=== PATIENT | male | born 1955 | race African-American/Black ===

== ENCOUNTER 2019-10-23 22:11 | Emergency (ER) | payer OTHER ==
[2019-10-24] MEDS ORDERED: NA CHLORIDE 0.9% 1,000 ML ONE (00:52)
[2019-10-24 01:29] LABS: Absolute Lymphocytes (CBC) 0.9 K/uL (0.7-4.9); Basophils % 0.7 % (0-1.3); Hematocrit 42.6 % (39.6-49.0); Lymphocytes % 20.9 % (15.3-44.8); MPV 10.1 fL (7.6-11.3)
[2019-10-24 01:47] LABS: Protime INR 1.09
[2019-10-24 01:50] LABS: ALT/SGPT 69 U/L (12-78); AST/SGOT 51 U/L (15-37); Albumin 3.6 g/dL (3.4-5.0); Alkaline Phosphatase 106 U/L (45-117); BUN Blood Urea Nitrogen 13 mg/dL (7-18); Bicarbonate 27 mmol/L (21-32); Bilirubin Direct < 0.1 mg/dL (0-0.2); Bilirubin Total 0.3 mg/dL (0.2-1.0); Glucose Level 142 mg/dL (74-106); Lipase 185 U/L (73-393); Potassium 3.8 mmol/L (3.5-5.1); Protein, Total 8.2 g/dL (6.4-8.2); Sodium Level 137 mmol/L (136-145)
[2019-10-24 02:09] LABS: Urine Blood NEGATIVE (NEG); Urine Glucose NEGATIVE (NEG); Urine Protein 1+ (NEG); Urine Specific Gravity >1.030 (1.005-1.030); Urine pH 5.5 (5.0-7.0)
[2019-10-24 02:15] LABS: Urine Bacteria 20-50 /HPF (NONE SEEN); Urine Culture Reflex Order REFLEXED; Urine Mucus 2+ /HPF (NONE SEEN); Urine RBC <5 /HPF (NONE SEEN)
[2019-10-24] MEDS ORDERED: dexAMETHasone 10 MG/ML VIAL ONE (02:24)
--- NOTE | 2019-10-24 03:10 | ER ---
Nurse's Notes [facility] Name: Ariel Wakefield Age: 64 yrs Sex: Male : 1955 Arrival Date: 10/23/2019 Time: 22:13 Bed 16 Private MD: Diagnosis: Pneumonia due to SARS-associated coronavirus Presentation: 10/22 22:17 Acuity: JONEL 3 sg 22:30 Chief complaint: Patient states: fever, headache, loss of appetite. Coronavirus screen: fu Patient reports a cough. Patient reports a measured and/or subjective temperature greater than 100.4F. Patient reports contact with known and/or suspected case of COVID-19. Ebola Screen: No symptoms or risks identified at this time. 22:30 Method Of Arrival: Ambulatory fu 10/23 00:29 Initial Sepsis Screen: Does the patient meet any 2 criteria? No. Patient's initial fu sepsis screen is negative. Risk Assessment: Do you want to hurt yourself or someone else? Patient reports no desire to harm self or others. Onset of symptoms was October 20, 2019. Historical: - Allergies: 02:06 No Known Allergies; fu - Home Meds: 02:06 metformin 500 mg oral tab 1 tab daily [Active]; hydrochlorothiazide 25 mg Oral tab 1 fu tab once daily [Active]; atorvastatin 10 mg oral tab 1 tab once daily [Active]; - PMHx: 02:06 Hypertension; Diabetes - NIDDM; fu - Immunization history:: Adult Immunizations up to date. - Social history:: Smoking status: Patient denies any tobacco usage or history of. Screenin:11 Abuse screen: Denies threats or abuse. Nutritional screening: No deficits noted. fu Tuberculosis screening: No symptoms or risk factors identified. Fall Risk None identified. Assessment: 01:00 General: Appears in no apparent distress. Behavior is calm, cooperative, appropriate fu for age, Reports fever for 2-3 days. Pain: Denies pain. Pain: Complains of pain in head Pain does not radiate. Neuro: Level of Consciousness is awake, alert, obeys commands, Oriented to person, place, time, situation, Electronic Console Display Operator are equal bilaterally Moves all extremities. Gait is steady, Speech is normal, Facial symmetry appears normal. Cardiovascular: Denies chest pain, nausea, vomiting. Respiratory: Reports cough that is productive, Airway is patent Respiratory effort is even, unlabored, Respiratory pattern is regular. GI: Reports loss of appetite. 02:00 Reassessment: Patient appears in no apparent distress at this time. No changes from fu previously documented assessment. Patient and/or family updated on plan of care and expected duration. Pain level reassessed. Patient is alert, oriented x 3, equal unlabored respirations, skin warm/dry/pink. 03:00 Reassessment: Patient appears in no apparent distress at this time. Patient and/or fu family updated on plan of care and expected duration. Pain level reassessed. Patient is alert, oriented x 3, equal unlabored respirations, skin warm/dry/pink. Patient denies pain at this time. Patient states feeling better. Vital Signs: 00:29 BP 131 / 76; Pulse 102; Temp 101.9(O); Pulse Ox 98% on R/A; Pain 0/10; fu 01:00 BP 132 / 82; Pulse 89; Resp 22; Pulse Ox 98% ; Pain 0/10; fu 01:56 BP 138 / 82; Pulse 105; Resp 22; Temp 101; Pulse Ox 98% ; snw 02:00 BP 122 / 80; Pulse 91; Resp 18; Temp 99.4(O); Pulse Ox 96% on R/A; Pain 0/10; fu ED Course: 10/22 22:13 Patient arrived in ED. cf2 22:17 Triage completed. sg 22:31 Maddie Alfaro FNP-C [facility] snw 22:31 Dionte Leal MD is Attending Physician. [facility] 10/23 00:42 Karan Javed, RN is Primary Nurse. fu 00:50 Inserted saline lock: 20 gauge in left antecubital area, using aseptic technique. fu 01:25 CXR XRAY In Process Unspecified. EDMS 01:52 Urine Microscopic Only Sent. fu 02:11 Patient has correct armband on for positive identification. Bed in low position. Side fu rails up X2. pig breeder on. Pulse ox on. NIBP on. 02:12 D-Dimer Sent. fu 02:12 BMP Sent. fu 02:12 C-Reactive Protein Sent. fu 02:13 CBC with Diff Sent. fu 02:13 Ferritin Sent. fu 02:13 Lactate Sent. fu 02:13 Procalcitonin Sent. fu 02:13 Urine Microscopic Only Sent. fu 02:40 CT Chest For PE Angio In Process Unspecified. EDMS 03:38 No provider procedures requiring assistance completed. IV discontinued, bleeding fu controlled, Pressure dressing applied. 04:55 COVID-19 Sent. fu 04:55 Urine Culture Sent. fu Administered Medications: 00:50 Drug: NS 0.9% 1000 ml {Note: Administered by ANTOINE Perkins.} Route: IV; Rate: 1 bolus; fu Site: left antecubital; 02:39 Drug: Decadron - Dexamethasone 10 mg Route: IVP; Site: left antecubital; fu 03:39 Follow up: Response: No adverse reaction fu 03:18 Not Given (Other Intervention Used): Zithromax 500 mg IVPB once over 1 hrs; mix in 250 snw mL NS 03:27 Drug: Zithromax 500 mg Route: PO; fu 03:39 Follow up: Response: Medication administered at discharge. fu Outcome: 03:10 Discharge ordered by MD. snw 03:37 Discharged to home ambulatory. fu 03:37 Condition: good 03:37 Discharge instructions given to patient, Instructed on discharge instructions, follow up and referral plans. Demonstrated understanding of instructions, Prescriptions given X 3. 03:40 Patient left the ED. fu Signatures: Dispatcher [employer] EDMS Alexey Edwards, RN Maddie Mcdaniel FNP-C FNP-Karan Jeter RN Lyssa Haq cf2
--- NOTE | 2019-10-24 03:10 | EDPHYS ---
Physician Documentation [facility] Name: Ariel Wakefield Age: 64 yrs Sex: Male : 1955 Arrival Date: 10/23/2019 Time: 22:13 Bed 16 Private MD: ED Physician Dionte Leal HPI: 10/23 02:09 This 64 yrs old Black Male presents to ER via Ambulatory with complaints of Fever, snw Cough, Decreased Appetite, General Weakness, Headache, Chills. 02:09 The patient reports fever, that was measured at 102 degrees Fahrenheit. Onset: The snw symptoms/episode began/occurred suddenly, 3 day(s) ago. Associated signs and symptoms: Pertinent positives: chills, cough, decreased appetite, myalgias. Severity of symptoms: At their worst the symptoms were moderate in the emergency department the symptoms are unchanged. The patient has not experienced similar symptoms in the past. The patient has not recently seen a physician. Daughter tested positive for CoVid 19 last week. Historical: - Allergies: 02:06 No Known Allergies; fu - Home Meds: 02:06 metformin 500 mg oral tab 1 tab daily [Active]; hydrochlorothiazide 25 mg Oral tab 1 fu tab once daily [Active]; atorvastatin 10 mg oral tab 1 tab once daily [Active]; - PMHx: 02:06 Hypertension; Diabetes - NIDDM; fu - Immunization history:: Adult Immunizations up to date. - Social history:: Smoking status: Patient denies any tobacco usage or history of. ROS: 02:07 Eyes: Negative for injury, pain, redness, and discharge, ENT: Negative for injury, snw pain, and discharge, Neck: Negative for injury, pain, and swelling, Cardiovascular: Negative for chest pain, palpitations, and edema. 02:07 Back: Negative for injury and pain, : Negative for injury, bleeding, discharge, and swelling, MS/Extremity: Negative for injury and deformity, Skin: Negative for injury, rash, and discoloration, Neuro: Negative for headache, weakness, numbness, tingling, and seizure. 02:07 Constitutional: Positive for body aches, chills, fatigue, fever, malaise, poor PO intake. 02:07 Respiratory: Positive for cough, with no reported sputum, pleurisy. 02:07 Abdomen/GI: Positive for anorexia. Exam: 02:08 Head/Face: Normocephalic, atraumatic. Eyes: Pupils equal round and reactive to light, snw extra-ocular motions intact. Lids and lashes normal. Conjunctiva and sclera are non-icteric and not injected. Cornea within normal limits. Periorbital areas with no swelling, redness, or edema. ENT: Nares patent. No nasal discharge, no septal abnormalities noted. Tympanic membranes are normal and external auditory canals are clear. Oropharynx with no redness, swelling, or masses, exudates, or evidence of obstruction, uvula midline. Mucous membranes moist. Neck: Trachea midline, no thyromegaly or masses palpated, and no cervical lymphadenopathy. Supple, full range of motion without nuchal rigidity, or vertebral point tenderness. No Meningismus. Chest/axilla: Normal chest wall appearance and motion. Nontender with no deformity. No lesions are appreciated. 02:08 Abdomen/GI: Soft, non-tender, with normal bowel sounds. No distension or tympany. No guarding or rebound. No evidence of tenderness throughout. Back: No spinal tenderness. No costovertebral tenderness. Full range of motion. Skin: Warm, dry with normal turgor. Normal color with no rashes, no lesions, and no evidence of cellulitis. MS/ Extremity: Pulses equal, no cyanosis. Neurovascular intact. Full, normal range of motion. Neuro: Awake and alert, GCS 15, oriented to person, place, time, and situation. Cranial nerves II-XII grossly intact. Motor strength 5/5 in all extremities. Sensory grossly intact. Cerebellar exam normal. Normal gait. Psych: Awake, alert, with orientation to person, place and time. Behavior, mood, and affect are within normal limits. 02:08 Constitutional: The patient appears alert, awake, obviously ill, uncomfortable. 02:08 Cardiovascular: Rate: tachycardic, Rhythm: regular, Pulses: no pulse deficits are appreciated. 02:08 Respiratory: the patient does not display signs of respiratory distress, Respirations: shallow respirations, tachypnea, Breath sounds: + upper airway congestion. SpO2 98%, cough. Vital Signs: 00:29 BP 131 / 76; Pulse 102; Temp 101.9(O); Pulse Ox 98% on R/A; Pain 0/10; fu 01:00 BP 132 / 82; Pulse 89; Resp 22; Pulse Ox 98% ; Pain 0/10; fu 01:56 BP 138 / 82; Pulse 105; Resp 22; Temp 101; Pulse Ox 98% ; snw 02:00 BP 122 / 80; Pulse 91; Resp 18; Temp 99.4(O); Pulse Ox 96% on R/A; Pain 0/10; fu MDM: 00:13 Patient medically screened. snw 01:55 Data reviewed: vital signs, nurses notes. Counseling: I had a detailed discussion with snw the patient and/or guardian regarding: the historical points, exam findings, and any diagnostic results supporting the discharge/admit diagnosis, lab results, radiology results. 10/23 00:57 Order name: D-Dimer 10/23 00:57 Order name: BMP 10/23 00:57 Order name: C-Reactive Protein 10/23 00:57 Order name: CBC with Diff 10/23 00:57 Order name: Ferritin 2 10/23 00:57 Order name: Lactate 10/23 00:57 Order name: LFT's; Complete Time: 01:53 mw2 10/23 00:57 Order name: Lipase; Complete Time: 01:53 mw2 10/23 00:57 Order name: Procalcitonin; Complete Time: 02:27 mw2 10/23 00:57 Order name: PT-INR; Complete Time: 01:53 mw2 10/23 00:57 Order name: Ptt, Activated; Complete Time: 01:53 mw2 10/23 00:57 Order name: Troponin (emerg Dept Use Only); Complete Time: 01:53 mw2 10/23 00:57 Order name: Urine Microscopic Only; Complete Time: 02:23 mw2 10/23 00:58 Order name: D-Dimer; Complete Time: 01:44 EDMS 10/23 00:57 Order name: CXR XRAY 10/23 00:57 Order name: EKG; Complete Time: 01:00 mw2 10/23 00:57 Order name: Cardiac monitoring; Complete Time: 01:43 mw2 10/23 00:58 Order name: Basic Metabolic Panel; Complete Time: 01:53 EDMS 10/23 00:58 Order name: C-Reactive Protein; Complete Time: 01:53 EDMS 10/23 00:59 Order name: CBC with Automated Diff; Complete Time: 01:44 EDMS 10/23 00:59 Order name: Ferritin; Complete Time: 01:53 EDMS 10/23 00:59 Order name: Lactate; Complete Time: 01:53 EDMS 10/23 01:52 Order name: Urine Dipstick--Ancillary (enter results); Complete Time: 02:11 mw2 10/23 01:55 Order name: CT Chest For PE Angio snw 10/23 02:17 Order name: Urine Culture EDMS 10/23 03:29 Order name: COVID-19 sg 10/23 00:57 Order name: Droplet/Contact Precautions; Complete Time: 04:55 mw2 10/23 00:57 Order name: IV Start; Complete Time: :43 mw2 10/23 00:57 Order name: Labs collected and sent; Complete Time: :43 mw2 10/23 00:57 Order name: O2 Per Protocol; Complete Time: :43 mw2 10/23 00:57 Order name: O2 Sat Monitoring; Complete Time: :43 mw2 10/23 00:57 Order name: Urine Dipstick-Ancillary (obtain specimen); Complete Time: 01:43 mw2 Administered Medications: 00:50 Drug: NS 0.9% 1000 ml {Note: Administered by ANTOINE Perkins.} Route: IV; Rate: 1 bolus; fu Site: left antecubital; 02:39 Drug: Decadron - Dexamethasone 10 mg Route: IVP; Site: left antecubital; fu 03:39 Follow up: Response: No adverse reaction fu 03:18 Not Given (Other Intervention Used): Zithromax 500 mg IVPB once over 1 hrs; mix in 250 snw mL NS 03:27 Drug: Zithromax 500 mg Route: PO; fu 03:39 Follow up: Response: Medication administered at discharge. fu Disposition: 06:52 Co-signature as Attending Physician, Dionte Leal MD I agree with the assessment and 4 plan of care. Disposition: 10/24/19 03:10 Discharged to Home. Impression: Pneumonia due to SARS-associated coronavirus. - Condition is Stable. - Discharge Instructions: COVID-19. - Prescriptions for Prednisone 20 mg Oral Tablet - take 1 tablet by ORAL route once daily for 5 days; 5 tablet. promethazine 25 mg Oral Tablet - take 1 tablet by ORAL route every 6 hours As needed; 20 tablet. Zithromax 500 mg Oral Tablet - take 1 tablet by ORAL route once daily for 5 days; 5 tablet. - Medication Reconciliation Form, Thank You Letter, Antibiotic Education, Prescription Opioid Use form. - Follow up: Emergency Department; When: As needed; Reason: Worsening of condition. Follow up: Private Physician; When: 5 - 6 days; Reason: Recheck today's complaints, Continuance of care, Re-evaluation by your physician. Signatures: Dispatcher [employer] EDMS Maddie Alfaro, KAILYN-C [employer]IDE [employer] Karan Javed RN RN fu Wadley, Terrence, MD MD tw4 Melisa Her 2 Corrections: (The following items were deleted from the chart) 03:40 03:10 10/24/2019 03:10 Discharged to Home. Impression: Pneumonia due to SARS-associated fu coronavirus. Condition is Stable. Forms are Medication Reconciliation Form, Thank You Letter, Antibiotic Education, Prescription Opioid Use. Follow up: Emergency Department; When: As needed; Reason: Worsening of condition. Follow up: Private Physician; When: 5 - 6 days; Reason: Recheck today's complaints, Continuance of care, Re-evaluation by your physician. snw
[2019-10-24] MEDS ORDERED: AZITHROMYCIN 250 MG TAB ONE (03:31)
[2019-10-24 03:56] VITALS: BP 122/80; TEMP 99.4; O2SAT 96
--- NOTE | 2019-10-26 10:26 | RAD REPORT ---
EXAM DESCRIPTION: CT Angiography Chest With Intravenous Contrast CLINICAL HISTORY: The patient is 64 years old and is Male; COUGH TECHNIQUE: Axial computed tomographic angiography images of the chest with intravenous contrast. S agittal and coronal reformatted images were created and reviewed. This CT exam was performed using one or more of the following dose reduction techniques: automated exposure control, adjustment of t he mA and/or kV according to patient size, and/or use of iterative reconstruction technique. MIP reconstructed images were created and reviewed. COMPARISON: No relevant prior studies available. FINDINGS: ARTIFACTS: The exam is suboptimal secondary to motion artifact. PULMONARY ARTERIES: The main pulmonary arteries and proximal segmental branches opacify normally and are without filling defect. AORTA: No acute findings. No thoracic aortic aneurysm. LUNGS: Subtle peripheral rounded groundglass opacities are present within the right upper lobe, left upper lobe, and bilateral lower lobes. The tracheobronchial tree is patent. There are slightly low lung volumes. PLEURAL SPACE: Unremarkable. No significant effusion. No pneumothorax. HEART: Unremarkable. No cardiomegaly. No significant pericardial effusion. No evidence of RV dysfunction. BONES/JOINTS: No acute fracture. No dislocation. SOFT TISSUES: Unremarkable. LYMPH NODES: Unremarkable. No enlarged lymph nodes. IMPRESSION: 1. The main pulmonary arteries and proximal segmental branches opacify normally and ar e without filling defect. The remainder of the vessels are inadequately evaluated secondary to jd on artifact. 2. Subtle peripheral rounded groundglass opacities throughout the lungs. Commonly reported imagin g features of (COVID-19 or viral) pneumonia are present. Other processes such as influenza pneumonia and organizing pneumonia, as can be seen with drug toxicity and connective tissue disease, can cause a similar imaging pattern. [id number] Electronically signed by: Ambar Godoy MD 10/24/2019 2:54 AM CDT Due to temporary technical issues with the PACS/Fluency reporting system, reports are being signed by the in house radiologist without review as a courtesy to ensure prompt reporting. The interpreting r adiologist is fully responsible for the content of the report.
--- NOTE | 2019-10-26 10:27 | RAD REPORT ---
EXAM DESCRIPTION: Chest Single View CLINICAL HISTORY: 64 years Male, COUGH COMPARISON: None. FINDINGS: No consolidation. No pneumothorax. No significant pleural effusion. Cardiomediastinal silhouette is unremarkable. Osseous structures are unremarkable. IMPRESSION: No acute findings. Electronically signed by: Elie Loera MD 10/24/2019 2:48 AM CDT Due to temporary technical issues with the PACS/Fluency reporting system, reports are being signed by the in house radiologist without review as a courtesy to ensure prompt reporting. The interpreting r adiologist is fully responsible for the content of the report.
== END 2019-10-24 03:40 | disposition home or self-care (01) ==
LOC: ER 22:11
DX: J12.81 Pneumonia due to SARS-associated coronavirus (principal); I10 Essential (primary) hypertension; E11.9 Type 2 diabetes mellitus without complications
CPT/HCPCS: 87088; 85025; 80048; 36415; 85610; 85379; 80076; 83605; 85730; 84484; 82728; 83690; 84145; 86140; 71275; 71045; 96374; 99284; U0001; Q9967; J1100; J7030; 81003; 81015; 87086

== ENCOUNTER 2019-10-26 12:32 | Emergency (ER) | payer OTHER ==
--- NOTE | 2019-10-26 14:12 | RAD REPORT ---
EXAM DESCRIPTION: RAD - Chest Single View - 10/26/2019 1:54 pm CLINICAL HISTORY: Cough;Dyspnea COMPARISON: Portable October 24, 2019 TECHNIQUE: AP portable chest image was obtained 10/26/2019 1:54 pm . FINDINGS: Lung volumes are reduced compared to prior study. No new or progressive lung parenchymal p rocess identifiable. Minimal lung base atelectasis changes are present. Heart and vasculature are nor mal. No measurable pleural effusion and no pneumothorax. No acute bony abnormality seen. No acute aor tic findings suspected. IMPRESSION: Hazy lung base atelectasis changes. No significant change from October 23 imaging.
--- OUTSIDE RECORDS SUMMARY | 2019-10-26 14:26 | XMS REPORT | Clinical Summary ---
:1955 Author Organization [facility] Address [address] [place] [address] Care Team Providers Name Role Phone Sergio Cavazos MD Primary Care Provider Unavailable Allergies No Known Allergies Medications Medication Sig Dispensed Refills Start Date End Date Status metFORMIN (GLUCOPHAGE) Take 500 mg by 0 Active 500 MG tablet mouth 2 (two) times daily with breakfast and dinner. atorvastatin (LIPITOR) 10 Take 10 mg by 0 Active MG tablet mouth daily. HYDROCHLOROTHIAZIDE ORAL Take 25 mg by 0 Active mouth . Active Problems Problem Noted Date Prostate cancer 09/25/2017 Immunizations Name Dates Previously Given Next Due Pneumococcal Conjugate (Prevnar) 13-Valent 09/26/2017 Social History Tobacco Use Types Packs/Day Years Used Date Never Smoker Smokeless Tobacco: Never Used Alcohol Use Drinks/Week oz/Week Comments Yes occasional Sex Assigned at Date Recorded Not on file Job Start Date Occupation Industry Not on file Not on file Not on file Travel History Travel Start Travel End No recent travel history available. Last Filed Vital Signs Not on file Plan of Treatment Not on file Results Not on fileafter 10/25/2018 Insurance Payer Benefit Plan / Group Subscriber ID Type Phone A ddress [employer] - [place] C[place] HMO/POS OPEN ACCESS xxxxxxxxxxx HMO/POS Advance Directives For more information, please contact:[address] [phone] Code Status Date Activated Date Inactivated Comments Full Code 09/25/2017 5:41 PM 09/27/2017 6:25 PM This code status was determined by: Patient
--- OUTSIDE RECORDS SUMMARY | 2019-10-26 14:27 | XMS REPORT | Continuity of Care Document ---
:[address] [facility] t Address [address] [place] [address] Care Team Providers Name Role Phone Dirk BELLAMY, Sergio Primary Care Physician Unavailable ZHENG Attending Clinician Unavailable CATHY LUIS Attending Clinician Unavailable CATHY LUIS Admitting Clinician Unavailable Problems Condition Condition Condition Status Onset Resolution Last Treating Co mments Source Name Details Category Date Date Treatment Clinician Date Prostate Pro[facility] Disease [facility] [address] [place] [address] Allergies, Adverse Reactions, Alerts This patient has no known allergies or adverse reactions. Social History Social Habit Start Date Stop Date Quantity Comments Source Sex Assigned At [facility] Alcohol Comment 2017-09-25 2017-09-25 occasional [facility] - 00:00:00 00:00:00 [facility] Smoking Status Start Date Stop Date Source Never smoker [facility] Medications Ordered Filled Start Stop Current Ordering Indication Dosage Frequency Signature Comments Components Source Medication Medication Date Date Medication? Clinician (SIG) Name Name HYDROCHLORO Yes 25mg Take [address] [facility] THIAZIDE 6-06 by mouth . [facility] - ORAL 06:27: Medical [address] [place] [address] metFORMIN Yes 500mg Take [address] [facility] [address] (GLUCOPHAGE 6-06 mg by [facility] - ) 500 MG 06:09: mouth 2 Medica l tablet 03 (two) Center times daily with breakfast and dinner. atorvastati Yes 10mg QD Take [address] [facility] (LIPITOR) 6-06 by mouth [facility] - 10 MG 06:09: daily. Medical tablet 03 Center Immunizations Ordered Immunization Filled Immunization Date Status Commen ts Source Name Name Pneumococcal 2017-09-[address] [facility] - Conjugate (Prevnar) 00:00:00 [facility] Procedures This patient has no known procedures. Results Test Description Test Time Test Comments Results Result [facility] e Comments CT, ABDOMEN - 2017-12-20 Reason for FINAL REPORT PATIENT PELVIS, HEMATURIA 21:13:00 exam:->HEMATURI ID: [id number] CT OF EVAL, WITHOUT / AReason for THE ABDOMEN AND WITH IV CONTRAST exam:->URINARY PELVIS CLINICAL FREQUENCY HISTORY: Hematuria, urinary frequency, post prostatectomy TECHNIQUE: CT of the abdomen and pelvis is performed with and without intravenous contrast administration. This exam was performed according to our departmental dose-optimization program which includes automated exposure control, adjustment of the mA and/or kV according to patient size and/or use of iterative reconstruction technique. COMPARISON FILM: None DISCUSSION: LOWER THORAX: Unremarkable. HEPATOBILIARY: No focal liver lesions. Main portal vein patent. Gallbladder unremarkable. No biliary ductal dilation.PANCREAS: No pancreatic ductal dilation. No pancreatic lesion. SPLEEN: No splenomegaly. ADRENALS: No nodule. KIDNEYS/URETERS: Subcentimeter hypodensities in both kidneys are too small to characterize but likely represent cysts. No obstructing renal or ureteral calculi. No hydronephrosis or hydroureter.PELVIC ORGANS/BLADDER: Diffuse wall thickening in the bladder with surrounding inflammatory change. Prostate is surgically absent. GI TRACT: No bowel wall thickening or distention. Normal appendix. PERITONEUM/RETROPERIT ONEUM: No free fluid or free air.LYMPH NODES: No enlarged retroperitoneal or pelvic lymph nodes identified. There is a fluid attenuation 3.7 x 2.4 cm structure along the left pelvic sidewall, likely representing a small lymphocele.VESSELS: Abdominal aorta normal in caliber. BONES AND SOFT TISSUES: Small fat-containing umbilical hernia. No destructive osseous lesion. IMPRESSION: Diffusely thickened bladder wall with surrounding inflammatory change. Findings suggest infectious or inflammatory cystitis. Recommend correlation with urinalysis. Postsurgical changes related to recent prostatectomy and lymph node dissection. There is a small lymphocele in the left pelvic sidewall measuring 3.7 cm in AP dimension. Signed: Ankur Oliva MDReport Verified Date/Time: 12/20/2017 21:13:17 Reading Location: [facility] [id number] Consult Reading Room ALYSIS W/ REFLEX URINE CULTURE 2017-12-20 18:41:00 Test Item Value Reference Range Interpretation Comme nts COLOR (BEAKER) (test code = 470) Red CLARITY (BEAKER) (test code = 469) Cloudy SPECIFIC GRAVITY UA (BEAKER) (test code = 468) 1.027 1.001-1 .035 PH UA (BEAKER) (test code = 467) 5.5 5.0-8.0 PROTEIN UA (BEAKER) (test code = 464) 200 mg/dL Negative A GLUCOSE UA (BEAKER) (test code = 365) Negative Negative KETONES UA (BEAKER) (test code = 371) Trace Negative A BILIRUBIN UA (BEAKER) (test code = 462) Negative Negative BLOOD UA (BEAKER) (test code = 461) Large Negative A NITRITE UA (BEAKER) (test code = 465) Negative Negative LEUKOCYTE ESTERASE UA (BEAKER) (test code = 466) Large Negat gila A UROBILINOGEN UA (BEAKER) (test code = 463) 2.0 mg/dL 0.2-1.0 H RBC UA (BEAKER) (test code = 519) 5201 /HPF WBC UA (BEAKER) (test code = 520) 231 /HPF MUCUS (BEAKER) (test code = 1574) Few SOURCE(BEAKER) (test code = 2795) CBC W/PLT COUNT & AUTO [id number] 18:34:00 Test Item Value Reference Range Interpretation Comments WHITE BLOOD CELL COUNT (BEAKER) 8.0 K/ L 3.5-10.5 (test code = 775) RED BLOOD CELL COUNT (BEAKER) 4.42 M/ L 4.63-6.08 L (test code = 761) HEMOGLOBIN (BEAKER) (test code = 13.2 GM/DL 13.7-17.5 L 410) HEMATOCRIT (BEAKER) (test code = 40.5 % 40.1-51.0 411) MEAN CORPUSCULAR VOLUME (BEAKER) 91.6 fL 79.0-92.2 (test code = 753) MEAN CORPUSCULAR HEMOGLOBIN 29.9 pg 25.7-32.2 (BEAKER) (test code = 751) MEAN CORPUSCULAR HEMOGLOBIN CONC 32.6 GM/DL 32.3-36.5 (BEAKER) (test code = 752) RED CELL DISTRIBUTION WIDTH 13.3 % 11.6-14.4 (BEAKER) (test code = 412) PLATELET COUNT (BEAKER) (test 223 K/CU MM 150-450 code = 756) MEAN PLATELET VOLUME (BEAKER) 10.7 fL 9.4-12.4 (test code = 754) NUCLEATED RED BLOOD CELLS 0 /100 WBC 0-0 (BEAKER) (test code = 413) (CELLAVISION MANUAL DIFF)2017-12-20 18:34:00 Test Item Value Reference Range Interpretation Comments NEUTROPHILS - REL 77 % (CELLAVISION)(BEAKER) (test code = 2816) LYMPHOCYTES - REL 14 % (CELLAVISION)(BEAKER) (test code = 2817) MONOCYTES - REL 4 % (CELLAVISION)(BEAKER) (test code = 2818) EOSINOPHILS - REL 1 % (CELLAVISION)(BEAKER) (test code = 2819) BANDS - REL (CELLAVISION)(BEAKER) 4 % 0-10 (test code = 2826) NEUTROPHILS - ABS 6.16 K/ul 1.78-5.38 H (CELLAVISION)(BEAKER) (test code = 2830) LYMPHOCYTES - ABS 1.12 K/ul 1.32-3.57 L (CELLAVISION)(BEAKER) (test code = 2831) MONOCYTES - ABS 0.32 K/uL 0.30-0.82 (CELLAVISION)(BEAKER) (test code = 2832) EOSINOPHILS - ABS 0.08 K/uL 0.04-0.54 (CELLAVISION)(BEAKER) (test code = 2834) BANDS - ABS (CELLAVISION)(BEAKER) 0.32 K/uL 0.00-0.80 (test code = 2840) TOTAL COUNTED (BEAKER) (test code = 100 1351) RBC MORPHOLOGY (BEAKER) (test code Normal = 762) SMUDGE CELLS (BEAKER) (test code = Present 1371) GIANT PLATELETS (BEAKER) (test code Present = 313) PLATELET CONCENTRATION Adequate (CELLAVISION)(BEAKER) (test code = 3438) Received comment: User comments: Slide comments:[id number] 18:23:00 Test Item Value Reference Range Interpretation Comments LIPASE (BEAKER) (test code = 749) 32 U/L 8-78 BASIC METABOLIC [id number] 18:23:00 Test Item Value Reference Range Interpretation Comments SODIUM (BEAKER) 138 meq/L 136-145 (test code = 381) POTASSIUM (BEAKER) 4.0 meq/L 3.5-5.1 (test code = 379) CHLORIDE (BEAKER) 104 meq/L 98-107 (test code = 382) CO2 (BEAKER) (test 27 meq/L 22-29 code = 355) BLOOD UREA NITROGEN 20 mg/dL 7-21 (BEAKER) (test code = 354) CREATININE (BEAKER) 1.27 mg/dL 0.57-1.25 H (test code = 358) GLUCOSE RANDOM 95 mg/dL 70-105 (BEAKER) (test code = 652) CALCIUM (BEAKER) 9.8 mg/dL 8.4-10.2 (test code = 697) EGFR (BEAKER) (test 70 mL/min/1.73 ESTIMA YUN GFR IS code = 1092) sq m NOT ACCURATE CREATININE CLEARANCE IN PREDICTING GLOMERULAR FILTRATION RATE . ESTIMATED GFR I S NOT APPLICABLE FOR DIALYSIS PATIEN TS. HEPATIC FUNCTION [id number] 18:23:00 Test Item Value Reference Range Interpretation Comments TOTAL PROTEIN (BEAKER) (test code = 7.9 gm/dL 6.0-8.3 770) ALBUMIN (BEAKER) (test code = 1145) 4.2 g/dL 3.5-5.0 BILIRUBIN TOTAL (BEAKER) (test code 0.4 mg/dL 0.2-1.2 = 377) BILIRUBIN DIRECT (BEAKER) (test 0.2 mg/dL 0.1-0.5 code = 706) ALKALINE PHOSPHATASE (BEAKER) (test 99 U/L 40-150 code = 346) AST (SGOT) (BEAKER) (test code = 27 U/L 5-34 353) ALT (SGPT) (BEAKER) (test code = 25 U/L 6-55 347) TISSUE [id number] 14:55:00Surgical Pathology Report Case: [id number] Authorizing Provider: Gregor Luis MD Collected: 09/25/2017 1116 Ordering Location: [facility] PERIOPERATIVE Received: 09/25/2017 1348 SERVICES Pathologist: Wilfred Garcia MD Specimens: A) -Lymph Node, Pelvic, Left B) - Lymph Node, Pelvic, Right C) - Prostate, and lee prostatic fat A. LYMPH NODE, LEFT PELVIC, DISSECTION: - THREE BENIGN LYMPH NODES (0/3)B. LYMPH NODE, RIGHT PELVIC, DISSECTION: - TWO BENIGN LYMPH NODES (0/2) C. PROSTATE, ROBOT ASSISTED RADICAL PROSTATECTOMY: - ADENOCARCINOMA, WEN 3+4=7, CONFINED TO PROSTATE, SURGICAL MARGINS NEGATIVE SEMINAL VESSICLES, ROBOT ASSISTED RADICAL PROSTATECTOMY: - NO PATHOLOGIC DIAGNOSIS Signing Pathologist Direct Phone Line: [phone] signed by Wilfred Garcia MD on 10/01/2017 at 2:55 PMPreliminary result electronically signed by Wilfred Garcia MD on 09/27/2017 at 2:14 PMSections show bilateral peripheral zone cancers, largest on the right, and mostly in the apical 2/3 of the gland. PROSTATE GLAND: Radical Prostatectomy (Prostate Res - All Specimens)SPECIMEN Procedure: Radical prostatectomy Prostate Size: Prostate Weight (g): 38 g Prostate Greatest Dimension in Centimeters (cm): 4.2 Centimeters (cm) Additional Dimension in Centimeters (cm): 3.5 Centimeters (cm) Additional Dimension in Centimeters (cm): 3.4 Centimeters (cm)TUMOR Histologic Type: Acinar adenocarcinoma Histologic Grade: Phoenix Pattern: Percentage of Pattern 4: 20 % Primary Wen Pattern: Pattern 3 Secondary Phoenix Pattern: Pattern 4 Tertiary Ewn Pattern: Not applicable Total Wen Score: 7 Grade Group: 2 Intraductal Carcinoma (IDC): Not identified Tumor Extent: Tumor Quantitation: Estimated percentage of prostate involved by tumor: 20 % Extraprostatic Extension (EPE): Not identified Urinary Bladder Neck Invasion: Not identified Seminal Vesicle Invasion: Not identified Accessory Findings: Treatment Effect: No known presurgical therapy Lymphovascular Invasion: Not Identified Perineural Invasion: Present MARGINS Margins: Uninvolved by invasive carcinoma LYMPH NODES Number of Lymph Nodes Involved: 0 Number of Lymph Nodes Examined: 4 PATHOLOGIC STAGE CLASSIFICATION (pTNM, AJCC 8th Edition) Primary Tumor (pT): pT2 Regional Lymph Nodes (pN): pN0 ADDITIONAL FINDINGS Additional Pathologic Findings: High-grade prostatic intraepithelial neoplasia (PIN) Additional Pathologic Findings:Nodular prostatic hyperplasia 81425, 11655 H2Btfmywhx cancerA. Left pelvic lymph node. B. Right pelvic lymph node. C. Prostate and periprostatic fatSpecimen A: Received fresh labeled "lymph node, pelvic, left" is 5.0 x 3.5 x 0.5 cm, yellow-jain, irregular portion of adipose tissue. Sectioning reveals two pink-jain to yellow possible lymph nodes measuring 1.0 cm and 3.0 cm in greatest dimension.The specimen entirely submitted as follows: A1, one intact lymph node; A2, one bisected lymph node; A3-A5, rem ainder of specimen.Specimen B: Received fresh labeled "lymph node, pelvic, right" is 4.5 x 2.5 x 0.5cm, yellow-jain, irregular portion of adipose tissue. Sectioning reveals a 4.0 cm in greatest dimension, pink-jain to yellow irregular lymph node.The specimen entirely submitted as follows: B1-B3, one serially sectioned lymph node; B4, remainder of specimen. DB/ewSpecimen C: Received is a radical prostatectomy specimen in formalin with the patient's name, Marilyn Wakefield, is a prostate with bilateral bilateral seminal vesicles and vas deferentia.The prostate weighs 38 gm and measures 3.5 cm apexto base, 4.2 cm transversely and 3.4 cm anterior to posterior. The right and left seminal vesicles measure 3.1 x 1.0 x 0.5 cm and 3.0 x 1.0 x 0.5 cm respectively. The right and left vasa deferentia measure 3.5 cm and 7.7 cm in length respectively and 0.5 cm in diameter. The capsular surface of the prostate is purple-jain to red, dusky, and focally ragged. Ink code: Right-black, left-blue. The prostateis serially sectioned from apex to base in entirety. The total number of slices including seminal vesicles and vas deferentia are 10. The sections reveal pink- jain to hu-white, homogeneous, focally nodular prostatic parenchyma throughout. No discrete masses are identified. Sectioning of the seminal vesicles reveals a pink-jain unremarkable cut surface. Section code: Apical margins are submitted in cassette C1, the bladder neck margins are submitted in cassette C2, the prostate slices are submitted in cassette C3 through C8. The right and left seminal vesicles at the base of the prostate are submitted in cassette C9, seminal vesicle tips along with vas deferentia are submitted in cassette C10. Also received is a jain-yellow fibrofatty piece of soft tissue measuring 5.0 x 2.0 x 0.5 cm and weighing 3.5 cm submitted in cassette C11.SDH/ewC. Received is a prostate with bilateral seminal vesicles and vas deferentia.The prostate weighs 38 gm and measures 3.5 cm apex to base, 4.2 cm transversely and 3.4cm anterior to posterior. The right and left seminal vesicles measure 3.1 x 1.0 x 0.5 cm and 3.0 x 1.0 x 0.5 cm respectively. SMZacarias/Christiano. Performed.POCT-GLUCOSE METER 2017-09-27 11:54:00 Test Item Value Reference Range Interpretation Comments POC-GLUCOSE METER 112 mg/dL 70-110 H TEST[facility] AT [place] [address] [facility] (test code = [facility] 1538) [id number] POCT-GLUCOSE [id number] 08:37:00 Test Item Value Reference Range Interpretation Comments POC-GLUCOSE METER 161 mg/dL 70-110 H TEST[facility] AT [place] [address] [facility] (test code = [facility] 1538) [id number] BASIC METABOLIC [id number] 04:47:00 Test Item Value Reference Range Interpretation Comments SODIUM (BEAKER) 140 meq/L 136-145 (test code = 381) POTASSIUM (BEAKER) 3.9 meq/L 3.5-5.1 (test code = 379) CHLORIDE (BEAKER) 108 meq/L 98-107 H (test code = 382) CO2 (BEAKER) (test 25 meq/L 22-29 code = 355) BLOOD UREA NITROGEN 11 mg/dL 7-21 (BEAKER) (test code = 354) CREATININE (BEAKER) 1.06 mg/dL 0.57-1.25 (test code = 358) GLUCOSE RANDOM 144 mg/dL 70-105 H (BEAKER) (test code = 652) CALCIUM (BEAKER) 8.8 mg/dL 8.4-10.2 (test code = 697) EGFR (BEAKER) (test 86 mL/min/1.73 ESTIMA YUN GFR IS code = 1092) sq m NOT ACCURATE CREATININE CLEARANCE IN PREDICTING GLOMERULAR FILTRATION RATE . ESTIMATED GFR I S NOT APPLICABLE FOR DIALYSIS PATIEN TS. HEMOGLOBIN AND [id number] 03:45:00 Test Item Value Reference Range Interpretation Comments HEMOGLOBIN (BEAKER) (test code = 12.5 GM/DL 13.7-17.5 L 410) HEMATOCRIT (BEAKER) (test code = 38.2 % 40.1-51.0 L 411) POCT-GLUCOSE [id number] 21:18:00 Test Item Value Reference Range Interpretation Comments POC-GLUCOSE METER 165 mg/dL 70-110 H TESTED AT [place] [address] ([facility]) (test code = [facility] 1538) [id number] POCT-GLUCOSE [id number] 18:02:00 Test Item Value Reference Range Interpretation Comments POC-GLUCOSE METER 139 mg/dL 70-110 H TESTED AT [place] [address] ([facility]) (test code = [facility] 1538) [id number] POCT-GLUCOSE [id number] 12:18:00 Test Item Value Reference Range Interpretation Comments POC-GLUCOSE METER 153 mg/dL 70-110 H TESTED AT [place] [address] ([facility]) (test code = [facility] 1538) [id number] POCT-GLUCOSE [id number] 07:43:00 Test Item Value Reference Range Interpretation Comments POC-GLUCOSE METER 140 mg/dL 70-110 H TESTED AT [place] [address] ([facility]) (test code = [facility] 1538) [id number] BASIC METABOLIC [id number] 05:34:00 Test Item Value Reference Range Interpretation Comments SODIUM (BEAKER) 138 meq/L 136-145 (test code = 381) POTASSIUM (BEAKER) 4.9 meq/L 3.5-5.1 (test code = 379) CHLORIDE (BEAKER) 103 meq/L 98-107 (test code = 382) CO2 (BEAKER) (test 27 meq/L 22-29 code = 355) BLOOD UREA NITROGEN 15 mg/dL 7-21 (BEAKER) (test code = 354) CREATININE (BEAKER) 1.23 mg/dL 0.57-1.25 (test code = 358) GLUCOSE RANDOM 145 mg/dL 70-105 H (BEAKER) (test code = 652) CALCIUM (BEAKER) 8.7 mg/dL 8.4-10.2 (test code = 697) EGFR (BEAKER) (test 73 mL/min/1.73 ESTIMA YUN GFR IS code = 1092) sq m NOT ACCURATE CREATININE CLEARANCE IN PREDICTING GLOMERULAR FILTRATION RATE . ESTIMATED GFR I S NOT APPLICABLE FOR DIALYSIS PATIEN TS. HEMOGLOBIN AND [id number] 05:17:00 Test Item Value Reference Range Interpretation Comments HEMOGLOBIN (BEAKER) (test code = 13.5 GM/DL 13.7-17.5 L 410) HEMATOCRIT (BEAKER) (test code = 41.0 % 40.1-51.0 411) POCT-GLUCOSE [id number] 18:04:00 Test Item Value Reference Range Interpretation Comments POC-GLUCOSE METER 133 mg/dL 70-110 H TESTED AT [facility] 6720 (BEAKER) (test code = [facility] [address] 1538) [address] BASIC METABOLIC [id number] 13:53:00 Test Item Value Reference Range Interpretation Comments SODIUM (BEAKER) 138 meq/L 136-145 (test code = 381) POTASSIUM (BEAKER) 3.6 meq/L 3.5-5.1 (test code = 379) CHLORIDE (BEAKER) 105 meq/L 98-107 (test code = 382) CO2 (BEAKER) (test 23 meq/L 22-29 code = 355) BLOOD UREA NITROGEN 18 mg/dL 7-21 (BEAKER) (test code = 354) CREATININE (BEAKER) 1.27 mg/dL 0.57-1.25 H (test code = 358) GLUCOSE RANDOM 159 mg/dL 70-105 H (BEAKER) (test code = 652) CALCIUM (BEAKER) 8.6 mg/dL 8.4-10.2 (test code = 697) EGFR (BEAKER) (test 70 mL/min/1.73 ESTIMA YUN GFR IS code = 1092) sq m NOT ACCURATE CREATININE CLEARANCE IN PREDICTING GLOMERULAR FILTRATION RATE . ESTIMATED GFR I S NOT APPLICABLE FOR DIALYSIS PATIEN TS. HEMOGLOBIN AND [id number] 13:33:00 Test Item Value Reference Range Interpretation Comments HEMOGLOBIN (BEAKER) (test code = 12.8 GM/DL 13.7-17.5 L 410) HEMATOCRIT (BEAKER) (test code = 38.6 % 40.1-51.0 L 411) POCT-GLUCOSE [id number] 06:09:00 Test Item Value Reference Range Interpretation Comments POC-GLUCOSE METER 108 mg/dL 70-110 TESTED AT [facility] 6720 (ABRIL) (test code = [facility] [place] 1538) [id number]
[2019-10-26 14:32] LABS: Absolute Lymphocytes (CBC) 0.7 K/uL (0.7-4.9); Basophils % 0.2 % (0-1.3); Hematocrit 40.8 % (39.6-49.0); Lymphocytes % 14.1 % (15.3-44.8); RBC Red Blood Cell Count 4.57 M/uL (4.33-5.43)
[2019-10-26 15:02] LABS: ALT/SGPT 92 U/L (12-78); Albumin 3.4 g/dL (3.4-5.0); Alkaline Phosphatase 93 U/L (45-117); BUN Blood Urea Nitrogen 14 mg/dL (7-18); Bicarbonate 29 mmol/L (21-32); Bilirubin Direct < 0.1 mg/dL (0-0.2); Bilirubin Total 0.4 mg/dL (0.2-1.0); Glucose Level 155 mg/dL (74-106); NT PRO-BNP 49 pg/mL (<125); Protein, Total 8.1 g/dL (6.4-8.2); Sodium Level 136 mmol/L (136-145); Troponin (Emerg Dept Use Only) < 0.02 ng/mL (0.0-0.045)
[2019-10-26 15:10] LABS: AST/SGOT 64 U/L (15-37); Magnesium 2.2 mg/dL (1.8-2.4); Potassium 3.9 mmol/L (3.5-5.1)
--- NOTE | 2019-10-26 15:15 | ER ---
Nurse's Notes [facility] Name: Ariel Wakefield Age: 64 yrs Sex: Male : 1955 Arrival Date: 10/26/2019 Time: 12:36 Bed 19 Private MD: Diagnosis: Other pneumonia, unspecified organism;Fever, unspecified;Dyspnea;Type 2 diabetes mellitus Presentation: 10/25 12:40 Chief complaint: Patient states: chest pain, SOB, headache, fever since Saturday. Was sv seen here on Saturday and discharged home. COVID result pending. Coronavirus screen: Surgical mask placed on patient. Patient moved to private room, placed in contact and droplet isolation with eye protection until further assessment. Patient reports a cough. Patient reports shortness of breath or difficulty breathing. Patient reports a measured and/or subjective temperature greater than 100.4F. Patient denies travel on a cruise ship or to a country the [facility] currently lists as an affected area. Patient denies contact with known and/or suspected case of COVID-19. Ebola Screen: No symptoms or risks identified at this time. Risk Assessment: Do you want to hurt yourself or someone else? Patient reports no desire to harm self or others. Onset of symptoms was October 23, 2019. 12:40 Method Of Arrival: Ambulatory sv 12:40 Acuity: JONEL 3 sv 12:42 Initial Sepsis Screen: Does the patient meet any 2 criteria? HR > 90 bpm. No. Patient's sv initial sepsis screen is negative. Does the patient have a suspected source of infection? No. Patient's initial sepsis screen is negative. Triage Assessment: 12:45 General: Appears in no apparent distress. uncomfortable, Behavior is calm, cooperative, bp appropriate for age. Pain: Complains of pain in chest. EENT: No deficits noted. Neuro: No deficits noted. Cardiovascular: Reports chest pain, Rhythm is sinus rhythm. Respiratory: Reports shortness of breath. GI: No signs and/or symptoms were reported involving the gastrointestinal system. : No signs and/or symptoms were reported regarding the genitourinary system. Derm: No deficits noted. Musculoskeletal: No deficits noted. Historical: - Allergies: 12:42 No Known Allergies; sv - PMHx: 12:42 Diabetes - NIDDM; Hypertension; sv - Immunization history:: Adult Immunizations up to date. - Family history:: not pertinent. - Social history:: Smoking status: Patient denies any tobacco usage or history of. Screenin:53 Abuse screen: Denies threats or abuse. Denies injuries from another. Nutritional bp screening: No deficits noted. Tuberculosis screening: No symptoms or risk factors identified. Fall Risk None identified. Assessment: 12:45 General: SEE TRIAGE NOTE. bp 13:45 Reassessment: ALL CURRENT ORDERS COMPLETE, RESULTS PENDING. bp 14:21 Reassessment: VS STABLE ON MONITOR, RESULTS PENDING. bp 15:28 Reassessment: PT TO CT. D/C ON HOLD FOR IVF AND CT RESULTS. bp 17:43 Reassessment: PT D/C HOME AMBULATORY, DX WITH PNEUMONIA. bp Vital Signs: 12:42 BP 122 / 73; Pulse 93; Resp 20; Temp 99.8; Pulse Ox 98% ; Weight 97.52 kg; Height 6 ft. sv 0 in. (182.88 cm); 14:15 BP 126 / 76; Pulse 83; Resp 20; Pulse Ox 95% on R/A; dh4 15:29 BP 130 / 77; Pulse 76; Resp 16; Pulse Ox 96% ; bp 16:50 BP 122 / 78; Pulse 84; Resp 16 S; Pulse Ox 97% on R/A; bp 12:42 Body Mass Index 29.16 (97.52 kg, 182.88 cm) sv ED Course: 12:36 Patient arrived in ED. mr 12:41 Triage completed. sv 12:42 Arm band placed on. sv 12:46 Ankur Osei, ABDIEL is Primary Nurse. bp 13:02 Travon Turner MD is Attending Physician. lovely 13:53 Patient has correct armband on for positive identification. Bed in low position. Call bp light in reach. Side rails up X2. watch commander on. Pulse ox on. NIBP on. 13:55 XRAY Chest (1 view) In Process Unspecified. EDMS 14:13 Missed attempt(s): 20 gauge in right antecubital area. dh4 14:13 Inserted saline lock: 20 gauge in left antecubital area, using aseptic technique. dh4 15:58 CT Chest For PE Angio In Process Unspecified. EDMS 16:26 Ermias Mann MD is Referral Physician. lovely 17:44 No provider procedures requiring assistance completed. IV discontinued, intact, bp bleeding controlled, No redness/swelling at site. Pressure dressing applied. Patient maintains SpO2 saturation greater than 95% on room air. Administered Medications: 15:15 Drug: Rocephin 1 grams Route: IV; Rate: per protocol; Site: left antecubital; bp 15:57 Follow up: IV Status: Completed infusion; IV Intake: 20ml bp 15:15 Drug: Decadron - Dexamethasone 6 mg Route: IVP; Site: left antecubital; bp 15:58 Follow up: Response: Marked relief of symptoms bp 15:15 Drug: NS 0.9% 1000 ml Route: IV; Rate: 1 bolus; Site: left antecubital; bp 17:45 Follow up: IV Status: Completed infusion; IV Intake: 1000ml bp 15:30 Drug: Zithromax 500 mg Route: IVPB; Infused Over: 1 hrs; Site: left antecubital; bp 17:02 Follow up: IV Status: Completed infusion; IV Intake: 100ml bp 15:30 Drug: Albuterol HFA Inhaler 2 puffs Route: Inhalation; bp Intake: 15:57 IV: 20ml; Total: 20ml. bp 17:02 IV: 100ml; Total: 120ml. bp 17:45 IV: 1000ml; Total: 1120ml. bp Outcome: 15:13 Discharge ordered by . lovely 17:45 Discharged to home ambulatory. bp 17:45 Condition: stable 17:45 Discharge instructions given to patient, Instructed on discharge instructions, follow up and referral plans. medication usage, Demonstrated understanding of instructions, follow-up care, medications, Prescriptions given X 4. 17:46 Patient left the ED. bp Addendum: 10/30/2019 19:55 Addendum: Other per , left a message with pt at 1640, it is noted that a call s g was made on 10/29/2019 at 0900 by as well. Signatures: Dispatcher [employer] EDMS Zainab Wagner RN RN sv Gay, Steven, RN RN sg Anderson, Corey, MD MD cha Rivera, Beth Arroyo RN RN iw Peltier, Brian, RN RN bp Huhn, Donald [facility] Corrections: (The following items were deleted from the chart) 10/25 12:44 12:42 Pulse 93bpm; Resp 20bpm; Pulse Ox 98%; Temp 99.8F; 97.52 kg; Height 6 ft. 0 in.; sv BMI: 29.1; sv 17:34 16:50 Pulse 84bpm; Resp 16bpm; Spontaneous; Pulse Ox 97% RA; iw bp
--- NOTE | 2019-10-26 15:15 | EDPHYS ---
Physician Documentation [facility] Name: Ariel Wakefield Age: 64 yrs Sex: Male : 1955 Arrival Date: 10/26/2019 Time: 12:36 Bed 19 Private MD: ED Physician Travon Turner HPI: 10/25 15:08 This 64 yrs old Black Male presents to ER via Ambulatory with complaints of Chest Pain, lovely Breathing Difficulty, Fever, Cough. 15:08 The patient or guardian reports chest pain that is located primarily in the substernal lovely area, anterior chest wall, right. Onset: 3 day(s) ago. The pain does not radiate. Associated signs and symptoms: Pertinent positives: cough, shortness of breath, fever. The chest pain is described as a heaviness. Duration: The patient or guardian reports a single episode, that is still ongoing, and worsening. Modifying factors: The symptoms are alleviated by nothing. the symptoms are aggravated by nothing. Severity of pain: in the emergency department the pain is unchanged. The patient has experienced similar episodes in the past, a few times. Historical: - Allergies: 12:42 No Known Allergies; sv - PMHx: 12:42 Diabetes - NIDDM; Hypertension; sv - Immunization history:: Adult Immunizations up to date. - Family history:: not pertinent. - Social history:: Smoking status: Patient denies any tobacco usage or history of. ROS: 15:08 Constitutional: Negative for fever, chills, and weight loss, Eyes: Negative for injury, lovely pain, redness, and discharge, ENT: Negative for injury, pain, and discharge, Neck: Negative for injury, pain, and swelling, Cardiovascular: Negative for chest pain, palpitations, and edema, Abdomen/GI: Negative for abdominal pain, nausea, vomiting, diarrhea, and constipation, Back: Negative for injury and pain, : Negative for injury, bleeding, discharge, and swelling, MS/Extremity: Negative for injury and deformity, Skin: Negative for injury, rash, and discoloration, Neuro: Negative for headache, weakness, numbness, tingling, and seizure, Psych: Negative for depression, anxiety, suicide ideation, homicidal ideation, and hallucinations, Allergy/Immunology: Negative for hives, rash, and allergies, Endocrine: Negative for neck swelling, polydipsia, polyuria, polyphagia, and marked weight changes, Hematologic/Lymphatic: Negative for swollen nodes, abnormal bleeding, and unusual bruising. 15:08 Respiratory: Positive for cough, shortness of breath, at rest. Exam: 15:08 Head/Face: Normocephalic, atraumatic. Eyes: Pupils equal round and reactive to light, lovely extra-ocular motions intact. Lids and lashes normal. Conjunctiva and sclera are non-icteric and not injected. Cornea within normal limits. Periorbital areas with no swelling, redness, or edema. ENT: Nares patent. No nasal discharge, no septal abnormalities noted. Tympanic membranes are normal and external auditory canals are clear. Oropharynx with no redness, swelling, or masses, exudates, or evidence of obstruction, uvula midline. Mucous membranes moist. Neck: Trachea midline, no thyromegaly or masses palpated, and no cervical lymphadenopathy. Supple, full range of motion without nuchal rigidity, or vertebral point tenderness. No Meningismus. Chest/axilla: Normal chest wall appearance and motion. Nontender with no deformity. No lesions are appreciated. Cardiovascular: Regular rate and rhythm with a normal S1 and S2. No gallops, murmurs, or rubs. Normal PMI, no JVD. No pulse deficits. Abdomen/GI: Soft, non-tender, with normal bowel sounds. No distension or tympany. No guarding or rebound. No evidence of tenderness throughout. Back: No spinal tenderness. No costovertebral tenderness. Full range of motion. Male : Normal genitalia with no discharge or lesions. Skin: Warm, dry with normal turgor. Normal color with no rashes, no lesions, and no evidence of cellulitis. MS/ Extremity: Pulses equal, no cyanosis. Neurovascular intact. Full, normal range of motion. Neuro: Awake and alert, GCS 15, oriented to person, place, time, and situation. Cranial nerves II-XII grossly intact. Motor strength 5/5 in all extremities. Sensory grossly intact. Cerebellar exam normal. Normal gait. Psych: Awake, alert, with orientation to person, place and time. Behavior, mood, and affect are within normal limits. 15:08 Constitutional: The patient appears febrile. 15:08 Respiratory: the patient does not display signs of respiratory distress, Respirations: normal, no acute changes, labored breathing, is not present, Breath sounds: decreased breath sounds, rhonchi, that are mild, are heard in the right lower lobe, right posterior middle lobe and right posterior lower lobe. 15:19 ECG was reviewed by the Attending Physician. [facility] Vital Signs: 12:42 BP 122 / 73; Pulse 93; Resp 20; Temp 99.8; Pulse Ox 98% ; Weight 97.52 kg; Height 6 ft. sv 0 in. (182.88 cm); 14:15 BP 126 / 76; Pulse 83; Resp 20; Pulse Ox 95% on R/A; dh4 15:29 BP 130 / 77; Pulse 76; Resp 16; Pulse Ox 96% ; bp 16:50 BP 122 / 78; Pulse 84; Resp 16 S; Pulse Ox 97% on R/A; bp 12:42 Body Mass Index 29.16 (97.52 kg, 182.88 cm) sv MDM: 13:02 Patient medically screened. [facility] 15:11 Data reviewed: vital signs, nurses notes, lab test result(s), EKG, radiologic studies, [facility] CT scan, plain films. 10/25 13:11 Order name: Basic Metabolic Panel; Complete Time: 15:24 [facility] 10/25 13:11 Order name: CBC with Diff; Complete Time: 15:06 [facility] 10/25 13:11 Order name: LFT's; Complete Time: 15:24 [facility] 10/25 13:11 Order name: Magnesium; Complete Time: 15:24 [facility] 10/25 13:11 Order name: NT PRO-BNP; Complete Time: 15:24 [facility] 10/25 13:11 Order name: Troponin (emerg Dept Use Only); Complete Time: 15:24 [facility] 10/25 13:11 Order name: XRAY Chest (1 view); Complete Time: 15:06 [facility] 10/25 13:11 Order name: Blood Culture Adult (2) [facility] 10/25 13:11 Order name: Influenza Screen (a \T\ B); Complete Time: 15:24 [facility] 10/25 13:11 Order name: COVID-19 [facility] 10/25 13:11 Order name: Urine Culture [facility] 10/25 13:11 Order name: Lactate; Complete Time: 15:06 [facility] 10/25 13:11 Order name: Procalcitonin; Complete Time: 15:40 [facility] 10/25 15:46 Order name: Urine Dipstick--Ancillary (enter results); Complete Time: 16:25 nc 10/25 13:11 Order name: EKG; Complete Time: 13:13 [facility] 10/25 13:11 Order name: Cardiac monitoring; Complete Time: 14:22 [facility] 10/25 13:11 Order name: EKG - Nurse/Tech; Complete Time: 13:54 [facility] 10/25 13:11 Order name: IV Saline Lock; Complete Time: 14:22 [facility] 10/25 13:11 Order name: Labs collected and sent; Complete Time: 14:22 [facility] 10/25 13:11 Order name: O2 Per Protocol; Complete Time: 13:54 [facility] 10/25 13:11 Order name: O2 Sat Monitoring; Complete Time: 13:54 [facility] 10/25 13:11 Order name: Urine Dipstick-Ancillary (obtain specimen); Complete Time: 15:58 [facility] 10/25 15:06 Order name: INCENTIVE SPIROMETRY [facility] 10/25 15:08 Order name: CT Chest For PE Angio; Complete Time: 16:25 [facility] 10/25 16:49 Order name: Vital Signs; Complete Time: 16:50 [facility] EC:19 Rate is 83 beats/min. Rhythm is regular. QRS [place] is Normal. NM interval is normal. QRS lovely interval is normal. QT interval is normal. No Q waves. T waves are Normal. No ST changes noted. Clinical impression: Normal ECG and No evidence of ischemia. Interpreted by me. Reviewed by me. Administered Medications: 15:15 Drug: Rocephin 1 grams Route: IV; Rate: per protocol; Site: left antecubital; bp 15:57 Follow up: IV Status: Completed infusion; IV Intake: 20ml bp 15:15 Drug: Decadron - Dexamethasone 6 mg Route: IVP; Site: left antecubital; bp 15:58 Follow up: Response: Marked relief of symptoms bp 15:15 Drug: NS 0.9% 1000 ml Route: IV; Rate: 1 bolus; Site: left antecubital; bp 17:45 Follow up: IV Status: Completed infusion; IV Intake: 1000ml bp 15:30 Drug: Zithromax 500 mg Route: IVPB; Infused Over: 1 hrs; Site: left antecubital; bp 17:02 Follow up: IV Status: Completed infusion; IV Intake: 100ml bp 15:30 Drug: Albuterol HFA Inhaler 2 puffs Route: Inhalation; bp Disposition: 10/26/19 15:13 Discharged to Home. Impression: Other pneumonia, unspecified organism, Fever, unspecified, Dyspnea, Type 2 diabetes mellitus. - Condition is Stable. - Discharge Instructions: Type 2 Diabetes Mellitus, Diagnosis, Adult, Fever, Adult, Community-Acquired Pneumonia, Adult, Shortness of Breath, Shortness of Breath, [id number], Incentive Spirometer, Community-Acquired Pneumonia, Adult, [id number], Type 2 Diabetes Mellitus, Diagnosis, Adult, [id number], Fever, Adult, [id number], Type 2 Diabetes Mellitus, Self Care, Adult, Type 2 Diabetes Mellitus, Self Care, Adult, [id number]-[id number]. - Prescriptions for Medrol (Lamont) 4 mg Oral Tablets, Dose Pack - take 1 tablet by ORAL route as directed - follow package instructions; 1 packet. Albuterol Sulfate 90 mcg/actuation - inhale 1-2 puff by INHALATION route every 4-6 hours; 1 Inhaler. Zithromax 500 mg Oral Tablet - take 1 tablet by ORAL route once daily for 4 days; 4 tablet. Guaifenesin AC 10- 100 mg/5 mL Oral Liquid - take 10 milliliters by ORAL route every 6 hours As needed; 160 milliliter. - Medication Reconciliation Form, Thank You Letter, Antibiotic Education, Prescription Opioid Use form. - Follow up: Private Physician; When: 2 - 3 days; Reason: Recheck today's complaints, Continuance of care, Re-evaluation by your physician. Follow up: Ermias Mann MD; When: 2 - 3 days; Reason: Recheck today's complaints, Re-evaluation by your physician. - Problem is new. - Symptoms have improved. Signatures: Dispatcher [employer] Zainab Whitman RN RN Travon Black MD MD cha Peltier, Brian, RN RN bp Corrections: (The following items were deleted from the chart) 15:16 15:13 10/26/2019 15:13 Discharged to Home. Impression: Other pneumonia, unspecified lovely organism; Fever, unspecified; Dyspnea. Condition is Stable. Forms are Medication Reconciliation Form, Thank You Letter, Antibiotic Education, Prescription Opioid Use. Follow up: Private Physician; When: 2 - 3 days; Reason: Recheck today's complaints, Continuance of care, Re-evaluation by your physician. Problem is new. Symptoms have improved. lovely 16:26 15:16 10/26/2019 15:13 Discharged to Home. Impression: Other pneumonia, unspecified lovely organism; Fever, unspecified; Dyspnea; Type 2 diabetes mellitus. Condition is Stable. Forms are Medication Reconciliation Form, Thank You Letter, Antibiotic Education, Prescription Opioid Use. Follow up: Private Physician; When: 2 - 3 days; Reason: Recheck today's complaints, Continuance of care, Re-evaluation by your physician. Problem is new. Symptoms have improved. lovely 17:46 16:26 10/26/2019 15:13 Discharged to Home. Impression: Other pneumonia, unspecified bp organism; Fever, unspecified; Dyspnea; Type 2 diabetes mellitus. Condition is Stable. Discharge Instructions: Type 2 Diabetes Mellitus, Diagnosis, Adult, Fever, Adult, Community-Acquired Pneumonia, Adult, Shortness of Breath, Shortness of Breath, [id number], Incentive Spirometer, Community-Acquired Pneumonia, Adult, [id number], Type 2 Diabetes Mellitus, Diagnosis, Adult, Kgim-uz-[id number], Fever, Adult, Epoo-bn-Ocrc, Type 2 Diabetes Mellitus, Self Care, Adult, Type 2 Diabetes Mellitus, Self Care, Adult, [id number]. Prescriptions for Medrol (Lamont) 4 mg Oral Tablets, Dose Pack - take 1 tablet by ORAL route as directed - follow package instructions; 1 packet, Albuterol Sulfate 90 mcg/actuation - inhale 1-2 puff by INHALATION route every 4-6 hours; 1 Inhaler, Zithromax 500 mg Oral Tablet - take 1 tablet by ORAL route once daily for 4 days; 4 tablet. and Forms are Medication Reconciliation Form, Thank You Letter, Antibiotic Education, Prescription Opioid Use. Follow up: Private Physician; When: 2 - 3 days; Reason: Recheck today's complaints, Continuance of care, Re-evaluation by your physician. Follow up: Ermias Mann; When: 2 - 3 days; Reason: Recheck today's complaints, Re-evaluation by your physician. Problem is new. Symptoms have improved. lovely
[2019-10-26] MEDS ORDERED: dexAMETHasone 10 MG/ML VIAL ONE (15:25)
[2019-10-26] MEDS ORDERED: NA CHLORIDE 0.9% 1,000 ML ONE (15:25)
[2019-10-26] MEDS ORDERED: CEFTRIAXONE/SWI 1gm 1 GM/10 ML SYR ONE (15:25)
[2019-10-26] MEDS ORDERED: ALBUTEROL INHALER 60 PUFF/8 GM IH ONE (15:30)
[2019-10-26] MEDS ORDERED: AZITHROMYCIN IV 500 MG in NA CHLORIDE 0.9% 250 ML IVPB ONE (16:00)
[2019-10-26 16:16] LABS: Urine Blood NEGATIVE (NEG); Urine Glucose NEGATIVE (NEG); Urine Protein NEGATIVE (NEG); Urine Specific Gravity <1.005 (1.005-1.030); Urine pH 5.5 (5.0-7.0)
--- NOTE | 2019-10-26 16:19 | RAD REPORT ---
EXAM DESCRIPTION: CT - Chest For Pe Angio - 10/26/2019 3:58 pm CLINICAL HISTORY: Cough;Dyspnea;Pain;Chest pain COMPARISON: Chest For Pe Angio dated 10/24/2019; Chest Single View dated 10/26/2019 TECHNIQUE: Dynamically enhanced 3 mm thick images of the chest were obtained during administration o f approximately 150mL Isovue 370 IV contrast. Coronal and oblique MIP reconstruction images were gene rated and reviewed. Exam utilizes a protocol to evaluate the pulmonary arterial tree. All CT scans are performed using dose optimization technique as appropriate and may include automated exposure control or mA/KV adjustment according to patient size. FINDINGS: No pulmonary emboli are identified. The aorta as imaged shows no acute or suspicious finding. Borderline to mild cardiomegaly is present without pericardial effusion. Patient has numerous peripheral ground-glass opacities throughout the lung murray. This is progressio n from findings detailed October 23. No dense consolidation. No vascular enlargement or new interstitial thickening. Respiratory motion is present. No pleural effusion or pleural thickening. No mediastinal or hilar suspicious masses. No chest wall masses or abnormal axillary lymphadenopathy. IMPRESSION: No pulmonary emboli identified. Worsening ground-glass opacities throughout the lung murray.This is a commonly reported presentation for COVID-19 pneumonia. Correlation is needed with any COVID-19 test results or clinical presentation consistent with a COVID-19 infection. Influenza pneumonia, organizing pneumonia, and drug toxicity are additional etiologies.
[2019-10-26 17:54] VITALS: TEMP 99.8
[2019-10-26 17:57] VITALS: BP 122/78; O2SAT 97
--- NOTE | 2019-10-27 06:40 | EKG ---
Test Date: 2019-10-26 Test Time: 13:37:14 Electromechanical Equipment Assembler: YAEL MEASUREMENT RESULTS: Intervals: Rate: 83 NE: 166 QRSD: 88 QT: 342 QTc: 401 Connell: P: 50 NE: 166 QRS: 20 T: 81 INTERPRETIVE STATEMENTS: Normal sinus rhythm Normal ECG Compared to ECG 12/24/2012 22:44:12 No significant changes Electronically Signed On 10-27-19 06:39:33 CDT by Isra Mckinnon
== END 2019-10-26 17:46 | disposition home or self-care (01) ==
LOC: ER 12:32
DX: U07.1 COVID-19 (principal); J12.89 Other viral pneumonia; R06.00 Dyspnea, unspecified; E11.9 Type 2 diabetes mellitus without complications; I10 Essential (primary) hypertension
CPT/HCPCS: 96365; 96361; 93005; 87040 ×2; 87088; 85025; 80048; 36415; 83735; 80076; 83605; 81003; 84484; 84145; 83880; 87804 ×2; 71275; 71045; 96375; 99285; U0001; Q9967; J0456; J1100; J0696; J7030 ×2; 87086

== ENCOUNTER 2022-02-28 12:06 | Observation (INO) | payer OTHER ==
--- OUTSIDE RECORDS SUMMARY | 2022-02-28 12:12 | XMS REPORT | Continuity of Care Document ---
:1955 Author Organization [facility] t Address [address] [place] [address] Dr. Lozano [address] [place] [id number] Care Team Providers Name Role Phone Asked, No Pcp Primary Care Physician Unavailable KAL LUIS Attending Clinician Unavailable ROSE CORONADO Attending Clinician Unavailable ANDRES MULLER Attending Clinician Unavailable LAB47 Attending Clinician Unavailable Andres Muller MD Attending Clinician LAB39 Attending Clinician Unavailable PROVIDER, AFFILIATE Attending Clinician Unavailable PREMA SIMONS Attending Clinician Unavailable Tab DETECTIVE-CPrema Attending Clinician Alida Steinberg PA-C Attending Clinician ZAIRA FELIZ Attending Clinician Unavailable Nurse, Adc Pob Immunization Attending Clinician Unavailable Cuate Vega DO Attending Clinician CUATE VEGA Attending Clinician Unavailable Kalpana Cheatham RN Attending Clinician Unavailable JACK CAMPOVERDE Attending Clinician Unavailable Only, Ang Db Test Attending Clinician Unavailable Jack Greene Attending Clinician Doctor Unassigned, [place] Attending Clinician Unavailable TESTING, MC COVID Attending Clinician Unavailable LUZ LOPEZ Attending Clinician Unavailable Yulisa Burks RN Attending Clinician Unavailable Juan Stein Attending Clinician JUAN LEOS Attending Clinician Unavailable Luz Lopez MD Attending Clinician PROMISE MONET Attending Clinician Unavailable MD PROMISE MONET Attending Clinician Unavailable LAYLA CALZADA Attending Clinician Unavailable KAL LUIS Attending Clinician Unavailable PROMISE MONET Admitting Clinician Unavailable MD PROMISE MONET Admitting Clinician Unavailable KAL LUIS Admitting Clinician Unavailable Payers Payer Name Policy Type Policy Number Effective Date Expiration Date Princess younger [place] [id number] 2017 [place] [address] 00:00:00 Problems Condition Condition Condition Status Onset Resolution Last Treating Co mments Source Name Details Category Date Date Treatment Clinician Date Pneumonia Pneumonia Disease Active [facility] due to due to 10-27 COVID-19 COVID-19 00:00: Hospit a virus virus 00 l Prostate Prostate Disease [facility] Prostate Prostate Disease Active [facility] 00 l Mixed Mixed Disease Active [facility] hyperlipid hyperlipid [address] [facility] 00 l Type 2 Type 2 Disease Active [facility] diabetes diabetes [address] [facility] mellitus mellitus 00:00: Hospit a with with 00 l hyperglyce hyperglyce wil, wil, without without long-term long-term current current use of use of insulin insulin HTN HTN Disease Active [facility] (hypertens (hypertens 9-19 st ion) ion) 00:00: Hospita 00 l Allergies, Adverse Reactions, Alerts Allergy Allergy Status Severity Reaction(s) Onset Inactive Treating Comm ents Source Name Type Date Date Clinician NO KNOWN Drug Active [facility] NO KNOWN Allergy Active [facility] Social History Social Habit Start Date Stop Date Quantity Comments Source History [facility] Drinks History SDOH [facility] Exposure to Not sure [facility] SARS-CoV-2 [facility] (event[facility] History SDOH 2019-10-29 2019-10-29 1 [facility] Frequency 00:00:00 00:00:00 Hospita l Alcohol intake 2019-10-28 2019-10-28 Lif[facility] 00:[facility] 00:00:00 non-drinker Hospital (finding) Tobacco use and 2017-09-25 2017-09-[address] [facility] [facility] exposure 00:00:00 00:[facility]:00 [facility] Center History SDOH 2017-09-25 2017-09-[address] [facility] Alcohol Comment 00:00:00 00:00:00 Medical C enter Sex Ass[birth year] At [birth year] [facility] 00:[facility]00 Hospital Smoking Status Start Date Stop Date Source Unknown if ever smoked [facility] Never smoked tobacco Constance Seyb old Medications Ordered Filled Start Stop Current Ordering Indication Dosage Frequency Signature Comments Components Source Medication Medication Date Date Medication? Clinician (SIG) Name Name Vitamin E Yes 100U Take 100 Ping ey 100 units 5-02 units by Seybol d oral Cap 16:30: mouth 39 daily Triamcinolo Yes [id number] Apply 1 Constance ne 08-21 applicatio Seybold Acetonide 00:00: n 0.1 % apply 00 topically externally 2 times Cream daily predniSONE 2021- No [id number] Take 5 Constance (DELTASONE) 5-02 05-18 tablets Seyb old 10 MG oral 00:00: 04:59 (50 mg tablet 00 :00 total) by mouth daily for 3 days, THEN 4 tablets (40 mg total) daily for 3 days, THEN 3 tablets (30 mg total) daily for 3 days, THEN 2 tablets (20 mg total) daily for 3 days, THEN 1 tablet (10 mg total) daily for 3 days. hydroCHLORO Yes [id number] TAKE 1 Constance thiazide 25 4-03 TABLET BY Sey bold MG oral 00:00: MOUTH Tablet 00 EVERY DAY Atorvastati Yes TAKE 1 Ping ey n Calcium 4-03 TABLET BY Seybo ld 10 MG oral 00:00: MOUTH Tablet 00 EVERY DAY Metformin Yes TAKE 1 Constance HCl 500 MG 4-03 (ONE) Seybold oral Tablet 00:00: TABLET BY 00 MOUTH DAILY (WITH BREAKFAST) Meclizine Yes [id number] 25mg Q.[id number] TAKE 1 Constanec HCl 25 MG 4-03 [id number] TABLET (25 Seybold oral Tablet 00:00: 3D MG TOTAL) 00 BY MOUTH 3 TIMES DAILY NEEDED FOR DIZZINESS OR NAUSEA Vitamin E Yes 100U Take 100 Ping ey 100 units 2-01 units by Seybol d oral Cap 15:52: mouth 41 daily Trimix 2021-0 Yes .05mL Inject Constance Regular 2-01 0.05 mL in Seybol d Strength 00:00: the penis (Papaverine 00 as 30 directed mg/Phentola mine 1 mg/Prostagl andin 10 mcg per 1 mL) Trimix 0 Yes .05mL Inject Constance Regular 2-01 0.05 mL in Seybol d Strength 00:00: the penis (Papaverine 00 as 30 directed mg/Phentola mine 1 mg/Prostagl andin 10 mcg per 1 mL) Vitamin E 2020-04 Yes 100U Take 100 Ping ey 100 units 1-05 units by Seybol d oral Cap 08:41: mouth 54 daily Meclizine 2020-04 Yes [id number] 25mg Q.[id number] Take 1 Constance HCl 25 MG 1-05 [id number] tablet (25 Seybold oral Tablet 00:00: 3D mg total) 00 by mouth 3 times daily as needed for dizziness or nausea Meclizine 2020-04 Yes [id number] 25mg Q.[id number] Take 1 Constance HCl 25 MG 1-05 [id number] tablet (25 Seybold oral Tablet 00:00: 3D mg total) 00 by mouth 3 times daily as needed for dizziness or nausea methylPREDN 2020-04- No [id number] 1{caryl} Take 1 caryl Constance ISolone 4 05 11-12 by mouth Seybo ld MG oral 00:00: 05:59 See Admin Tablet 00 :00 Instructio Therapy ns for 6 Pack days Use as directed Vitamin E 2020-04 Yes 100U Take 100 Ping ey 100 units 0-23 units by Seybol d oral Cap 10:51: mouth 01 daily Benzonatate 2020-04 Yes 200mg Q.[id number] Take 1 Constance 200 MG oral 0-23 [id number] capsule Seybold Capsule 00:00: 3D (200 mg 00 total) by mouth 3 times daily as needed for cough Benzonatate 2020-04- No 200mg Q.[id number] Take 1 Constance 200 MG oral 0-23 11-05 [id number] capsule Seybold Capsule 00:00: 00:00 3D (200 mg 00 :00 total) by mouth 3 times daily as needed for cough Atorvastati 2020-04 Yes 10mg Take 1 Ping ey n Calcium 0-20 tablet (10 Seyb old 10 MG oral 00:00: mg total) Tablet 00 by mouth daily Metformin 2020-04 Yes 500mg Take 1 Kelse y HCl 500 MG 0-20 tablet Seybold oral Tablet 00:00: (500 mg 00 total) by mouth daily (with breakfast) hydroCHLORO 2020-04 Yes [id number] 25mg Take 1 Constance thiazide 25 0-20 tablet (25 Se ybold MG oral 00:00: mg total) Tablet 00 by mouth daily Atorvastati 2020-04 Yes 10mg Take 1 Ping ey n Calcium 0-20 tablet (10 Seyb old 10 MG oral 00:00: mg total) Tablet 00 by mouth daily Metformin 2020-04 Yes 500mg Take 1 Kelse y HCl 500 MG 0-20 tablet Seybold oral Tablet 00:00: (500 mg 00 total) by mouth daily (with breakfast) hydroCHLORO 2020-04 Yes [id number] 25mg Take 1 Constance thiazide 25 0-20 tablet (25 Se ybold MG oral 00:00: mg total) Tablet 00 by mouth daily Atorvastati 2020-04 Yes 10mg Take 1 Ping ey n Calcium 0-20 tablet (10 Seyb old 10 MG oral 00:00: mg total) Tablet 00 by mouth daily Metformin 2020-04 Yes 500mg Take 1 Kelse y HCl 500 MG 0-20 tablet Seybold oral Tablet 00:00: (500 mg 00 total) by mouth daily (with breakfast) hydroCHLORO 2020-04 Yes [id number] 25mg Take 1 Constance thiazide 25 0-20 tablet (25 Se ybold MG oral 00:00: mg total) Tablet 00 by mouth daily Tadalafil Yes 20mg Q24H Take 1 Constance (Cialis) 20 1-29 tablet (20 Se ybold MG oral Tab 00:00: mg total) 00 by mouth daily as needed for erectile dysfunctio n as directed Tadalafil 2021-0 Yes 20mg Q24H Take 1 Constance (Cialis) 20 - tablet (20 Se ybold MG oral Tab 00:00: mg total) 00 by mouth daily as needed for erectile dysfunctio n as directed Tadalafil 2020-0 2022- No 20mg Q24H Take 1 Jordyn y (Cialis) 20 - 02-01 tablet (20 S eybold MG oral Tab 00:00: 00:00 mg total) 00 :00 by mouth daily as needed for erectile dysfunctio n as directed methylPREDN 2020-0 Yes follow Meth segundo ISolone 7-[address] (MEDROL 13:24: directions Hosp yajaira DOSEPAK) 4 14 Started l mg tablet Saturday10/27/19 metFORMIN 2020-0 Yes 500mg QD Take 500 [facility] (GLUCOPHAGE 7-[address] ) 500 mg 13:24: mouth Hospita tablet 14 daily with l breakfast. hydroCHLORO 2020-0 Yes 25mg QD Take 25 mg [facility] thiazide 7-[address] (HYDRODIURI 13:24: daily. Hosp yajaira L) 25 MG 14 l tablet atorvastati 2019-0 Yes 10mg QD Take 10 mg [facility] n (LIPITOR) 7-[address] 10 mg 13:24: daily. Hospita tablet 14 l codeine-gua 2020-0 Yes [id number] 10mL Q6H Take 10 mL [facility] ifenesin 7-[address] (GUAIFENESI 13:24: every 6 Hos claudia N AC) 14 (six) l 10-100 mg/5 hours as mL liquid needed for cough or congestion .acute pain. albuterol 2020-0 Yes 2{puff} Q6H Inhale 2 M ethodi (PROAIR 7-[address] HFA) 90 13:24: every 6 Hospita mcg/actuati 14 (six) l on inhaler hours as needed for wheezing or shortness of breath. vitamin E 2020-0 Yes 1{capsu QD Take 1 [facility] acetate 7-21 le} capsule by st (VITAMIN E 13:24: mouth Hospit a ORAL) 14 daily. l methylPREDN 2020-0 Yes follow Meth segundo ISolone 7-[address] (MEDROL 13:24: directions Hosp yajaira DOSEPAK) 4 14 Started l mg tablet Saturday10/27/19 metFORMIN 2020-0 Yes 500mg QD Take 500 [facility] (GLUCOPHAGE 7-[address] ) 500 mg 13:24: mouth Hospita tablet 14 daily with l breakfast. hydroCHLORO 2020-0 Yes 25mg QD Take 25 mg [facility] thiazide 7-[address] (HYDRODIURI 13:24: daily. Hosp yajaira L) 25 MG 14 l tablet atorvastati 2020-0 Yes 10mg QD Take 10 mg [facility] n (LIPITOR) 7-[address] 10 mg 13:24: daily. Hospita tablet 14 l codeine-gua 2020-0 Yes [id number] 10mL Q6H Take 10 mL [facility] ifenesin 7-[address] (GUAIFENESI 13:24: every 6 Hos claudia N AC) 14 (six) l 10-100 mg/5 hours as mL liquid needed for cough or congestion .acute pain. albuterol Yes 2{puff} Q6H Inhale 2 M ethodi (PROAIR 7-[address] HFA) 90 13:24: every 6 Hospita mcg/actuati 14 (six) l on inhaler hours as needed for wheezing or shortness of breath. vitamin E Yes 1{capsu QD Take 1 Met [facility] acetate 7-21 le} capsule by st (VITAMIN E 13:24: mouth Hospit a ORAL) 14 daily. l Trimix Yes .05mL Inject Constance Regular 10-28 0.05 mL in Seybol d Strength 00:00: the penis (Papaverine 00 as 30 directed mg/Phentola mine 1 mg/Prostagl andin 10 mcg per 1 mL) Trimix Yes .05mL Inject Constance Regular 7 0.05 mL in Seybol d Strength 00:00: the penis (Papaverine 00 as 30 directed mg/Phentola mine 1 mg/Prostagl andin 10 mcg per 1 mL) Trimix 2021- No .05mL Inject Constance Regular 10-28 02- 0.05 mL in Seybo ld Strength 00:00: 00:00 the penis (Papaverine 00 :00 as 30 directed mg/Phentola mine 1 mg/Prostagl andin 10 mcg per 1 mL) Blood 2019-0 Yes [id number] Check bs Ping ey Glucose 3-05 once daily Seybol d Monitoring 00:00: Suppl 00 (BLOOD GLUCOSE MONITOR SYSTEM) w/Device does not apply Kit Glucose 2019-0 Yes [id number] Check bs Ke lsey Blood in 3-05 once daily Seybo ld vitro Strip 00:00: 00 Lancets 2019-0 Yes [id number] Check bs Ke lsey does not 3-05 once daily Seybo ld apply Misc 00:00: 00 Blood 2019-0 Yes [id number] Check bs Ping ey Glucose 3-05 once daily Seybol d Monitoring 00:00: Suppl 00 (BLOOD GLUCOSE MONITOR SYSTEM) w/Device does not apply Kit Glucose 2019-0 Yes [id number] Check bs Ke lsey Blood in 3-05 once daily Seybo ld vitro Strip 00:00: 00 Lancets 2019-0 Yes [id number] Check bs Ke lsey does not 3-05 once daily Seybo ld apply Misc 00:00: 00 Blood 2019-0 Yes [id number] Check bs Ping ey Glucose 3-05 once daily Seybol d Monitoring 00:00: Suppl 00 (BLOOD GLUCOSE MONITOR SYSTEM) w/Device does not apply Kit Glucose 2019-0 Yes [id number] Check bs Ke lsey Blood in 3-05 once daily Seybo ld vitro Strip 00:00: 00 Lancets 2019-0 Yes [id number] Check bs Ke lsey does not 3-05 once daily Seybo ld apply Misc 00:00: 00 Blood 2019-0 Yes [id number] Check bs Ping ey Glucose 3-05 once daily Seybol d Monitoring 00:00: Suppl 00 (BLOOD GLUCOSE MONITOR SYSTEM) w/Device does not apply Kit Glucose 2019-0 Yes [id number] Check bs Ke lsey Blood in 3-05 once daily Seybo ld vitro Strip 00:00: 00 Lancets 2019-0 Yes [id number] Check bs Ke lsey does not 3-05 once daily Seybo ld apply Misc 00:00: 00 metFORMIN 2018-0 Yes 500mg Take [address] [facility] (GLUCOPHAGE 6-08 [facility] ) 500 MG 16:25: mouth 2 Medica l tablet 24 (two) Center times daily with breakfast and dinner. atorvastati 2017-0 Yes 10mg QD Take [address] [facility] (LIPITOR) 6-08 by mouth Luke s 10 MG 16:25: daily. Medical tablet 24 Center HYDROCHLORO Yes 25mg Take [address] THIAZIDE 6-08 by mouth . [facility] ORAL 16:25: Medical 24 Center metFORMIN 2017-0 Yes 500mg Take [address] (GLUCOPHAGE 6-08 [facility] ) 500 MG 16:25: mouth 2 Medica l tablet 24 (two) Center times daily with breakfast and dinner. atorvastati Yes 10mg QD Take [address] n (LIPITOR) 6-08 by mouth Luke s 10 MG 16:25: daily. Medical tablet 24 Center HYDROCHLORO Yes 25mg Take [address] THIAZIDE 6-08 by mouth . [facility] ORAL 16:25: Medical 24 Center Immunizations Ordered Immunization Filled Immunization Date Status Commen ts Source Name Name SARS-COV-2 COVID-19 2021-05-[address] [facility] MODERNA BOOSTER 00:00:00 [facility] VACCINE Branch Covid-19 Vaccine 2020-07-15 Completed Constance finleybojean (Moderna), Mrna-lnp, 00:00:00 Ethan Protein, Pf, 100 Mcg/0.5ml,IM Covid-19 Vaccine 2020-07-15 Completed Constance borden Moderna (Spikevax), 00:00:00 Mrna-lnp, Ethan Protein, Pf Covid-19 Vaccine 2020-07-15 Completed Cosntance finleybojean (Moderna), Mrna-lnp, 00:00:00 Ethan Protein, Pf, 100 Mcg/0.5ml,IM Covid-19 Vaccine 2020-07-15 Completed Constance Sánchez eybold (Moderna), Mrna-lnp, 00:00:00 Ethan Protein, Pf, 100 Mcg/0.5ml,IM Covid-19 Vaccine 2020-06-20 Completed Constance finleybold (Moderna), Mrna-lnp, 00:00:00 Ethan Protein, Pf, 100 Mcg/0.5ml,IM Covid-19 Vaccine 2020-06-20 Completed Constance borden Moderna (Spikevax), 00:00:00 Mrna-lnp, Ethan Protein, Pf Covid-19 Vaccine 2020-06-20 Completed Constance borden (Moderna), Mrna-lnp, 00:00:00 Ethan Protein, Pf, 100 Mcg/0.5ml,IM Covid-19 Vaccine 2020-06-20 Completed Constance borden (Moderna), Mrna-lnp, 00:00:00 Ethan Protein, Pf, 100 Mcg/0.5ml,IM Shingles IM 2019-10-01 Completed Constance Seybol d (Shingrix) 00:00:00 Shingles IM 2019-10-01 Completed Constance Seybol d (Shingrix) 00:00:00 Shingles IM 2019-10-01 Completed Constance Seybol d (Shingrix) 00:00:00 Shingles IM 2019-10-01 Completed Constance Seybol d (Shingrix) 00:00:00 Influenza Virus 2018-12-11 Completed Constance Se ybold Vaccine, age 6 months 00:00:00 and up Influenza Virus 2018-12-11 Completed Constance Se ybold Vaccine, age 6 months 00:00:00 and up Influenza Virus 2018-12-11 Completed Constance Se ybold Vaccine, age 6 months 00:00:00 and up Influenza Virus 2018-12-11 Completed Constance Se ybold Vaccine, age 6 months 00:00:00 and up Shingles IM 2017-12-13 Completed Constance Seybol d (Shingrix) 00:00:00 Pneumococcal Vaccine, 2017-12-13 Completed Tim sey Seybold Polysaccharide 00:00:00 Shingles IM 2017-12-13 Completed Constance Seybol d (Shingrix) 00:00:00 Pneumococcal Vaccine, 2017-12-13 Completed Tim sey Seybold Polysaccharide 00:00:00 Shingles IM 2017-12-13 Completed Constance Seybol d (Shingrix) 00:00:00 Pneumococcal Vaccine, 2017-12-13 Completed Tim sey Seybold Polysaccharide 00:00:00 Shingles IM 2017-12-13 Completed Constance Seybol d (Shingrix) 00:00:00 Pneumococcal Vaccine, 2017-12-13 Completed Tim sey Seybold Polysaccharide 00:00:00 Pneumococcal 2017-09-[address] [facility] Conjugate (Prevnar) 00:00:00 [facility] 13-Valent Pneumococcal Vaccine, 2017-09-26 Completed Tim sey Seybold Conjugate 13 00:00:00 Pneumococcal Vaccine, 2017-09-26 Completed Tim sey Seybold Conjugate 13 00:00:00 Pneumococcal Vaccine, 2017-09-26 Completed Tim sey Seybold Conjugate 13 00:00:00 Pneumococcal Vaccine, 2017-09-26 Completed Tim sey Seybold Conjugate 13 00:00:00 Pneumococcal 2017-09-[address] [facility] Conjugate (Prevnar) 00:00:00 [facility] 13-Valent Shingles SQ 2017-05-27 Completed Constance Seybol d (Zostavax) 00:00:00 Shingles SQ 2017-05-27 Completed Constance Seybol d (Zostavax) 00:00:00 Shingles SQ 2017-05-27 Completed Constance Seybol d (Zostavax) 00:00:00 Shingles SQ 2017-05-27 Completed Constance Seybol d (Zostavax) 00:00:00 Tdap- (Boostrix, 2016-11-30 Completed Constance borden Adacel) 00:00:00 Tdap- (Boostrix, 2016-11-30 Completed Constance borden Adacel) 00:00:00 Tdap- (Boostrix, 2016-11-30 Completed Constance borden Adacel) 00:00:00 Tdap- (Boostrix, 2016-11-30 Completed Constance borden Adacel) 00:00:00 Vital Signs Vital Name Observation Time Observation Value Comments Source Systolic blood pressure 2021-08-21 21:28:00 126 mm[Hg] Constance Guerda Diastolic blood 2021-08-21 21:28:00 64 mm[Hg] Tim y Seybold pressure Heart rate 2021-08-21 21:28:00 67 /min Constance borden Body temperature 2021-08-21 21:28:00 36.28 Natalie Ping finley Seyvettemely Respiratory rate 2021-08-21 21:28:00 15 /min Ping Croft Body height 2021-08-21 21:28:00 180.3 cm Constance borden Body weight 2021-08-21 21:28:00 103.874 kg Constance finleybold BMI 2021-08-21 21:28:00 31.94 kg/m2 Constance Sánchez eybold Systolic blood pressure 2021-05-23 21:51:00 120 mm[Hg] Constance Seybold Diastolic blood 2021-05-23 21:51:00 70 mm[Hg] Kelse y Seybold pressure Heart rate 2021-05-23 21:51:00 88 /min Constance Sánchez eybold Body temperature 2021-05-23 21:51:00 36.78 Natalie Ping ey Seybold Respiratory rate 2021-05-23 21:51:00 16 /min Ping ey Seybold Body height 2021-05-23 21:51:00 180.3 cm Constance Sánchez eybold Body weight 2021-05-23 21:51:00 103.874 kg Constance Sánchez eybold BMI 2021-05-23 21:51:00 31.94 kg/m2 Constance Sánchez eybold Systolic blood pressure 2021-02-24 13:41:00 126 mm[Hg] Constance Seybold Diastolic blood 2021-02-24 13:41:00 68 mm[Hg] Kelse y Seybold pressure Heart rate 2021-02-24 13:41:00 64 /min Constance Sánchez eybold Body temperature 2021-02-24 13:41:00 36.83 Natalie Ping ey Seybold Respiratory rate 2021-02-24 13:41:00 16 /min Ping finley Seybold Body weight 2021-02-24 13:41:00 104.146 kg Constance finleybold BMI 2021-02-24 13:41:00 32.02 kg/m2 Constance Sánchez eybold Body height 2021-02-11 15:50:00 180.3 cm Constance Sánchez eybold Body weight 2021-02-11 15:50:00 99.791 kg Constance Sánchez eybold BMI 2021-02-11 15:50:00 30.68 kg/m2 Constance finleybold Procedures Procedure Date / Time Performed Performing Clinician [facility] e SARS-COV-2 COVID-19 2021-05-12 20:50:42 [facility] BOOSTER,0.25ML,IM (MODERNA) ASSIGNMENT OF BENEFITS 2021-04-17 17:59:15 Doctor Unassigned, No [facility] Name [facility] Plan of Care Planned Activity Planned Date Details Comments Source Future Scheduled 2022-02-28 HEPATITIS B VACCINES [facility] Test 07:09:43 (1 of 3 - 3-dose series) [code = HEPATITIS B VACCINES (1 of 3 - 3-dose series)] Future Scheduled 2022-02-28 COVID-19 VACCINE (#1) [facility] Hospital Test 07:09:43 [code = COVID-19 VACCINE (#1)] Future Scheduled 2022-02-28 Pneumococcal Vaccine: [facility] Test 07:09:43 Pediatrics (0 to 5 Years) and At-Risk Patients (6 to 64 Years) (1 - PCV) [code = Pneumococcal Vaccine: Pediatrics (0 to 5 Years) and At-Risk Patients (6 to 64 Years) (1 - PCV)] Future Scheduled 2022-02-28 DIABETIC FOOT EXAM [facility] Test 07:09:43 [code = DIABETIC FOOT EXAM] Future Scheduled 2022-02-28 Hepatitis C screening [facility] Test 07:09:43 (procedure) [code = 652222807] Future Scheduled 2022-02-28 COLONOSCOPY SCREENING [facility] Hospital Test 07:09:43 [code = COLONOSCOPY SCREENING] Future Scheduled 2022-02-28 SHINGLES VACCINES ([address] [facility] Hospital Test 07:09:43 of 3) [code = SHINGLES VACCINES (2 of 3)] Future Scheduled 2022-02-28 DIABETES: RETINAL EYE [facility] Test 07:09:43 EXAM [code = DIABETES: RETINAL EYE EXAM] Future Scheduled 2022-02-28 INFLUENZA VACCINE [facility] Test 07:09:43 [code = INFLUENZA VACCINE] Future Scheduled 2021-05-23 COVID-19 VACCINE (1) Met [facility] Hospital Test 15:42:43 [code = COVID-19 VACCINE (1)] Future Scheduled 2021-05-23 DIABETES: RETINAL EYE [facility] Test 15:42:43 EXAM [code = DIABETES: RETINAL EYE EXAM] Future Scheduled 2021-05-23 DIABETIC FOOT EXAM [facility] Test 15:42:43 [code = DIABETIC FOOT EXAM] Future Scheduled 2021-05-23 Hepatitis C screening [facility] Test 15:42:43 (procedure) [code = 052124216] Future Scheduled 2021-05-23 COLONOSCOPY SCREENING [facility] Test 15:42:43 [code = COLONOSCOPY SCREENING] Future Scheduled 2021-05-23 SHINGLES VACCINES (#2) [facility] Test 15:42:43 [code = SHINGLES VACCINES (#2)] Future Scheduled 2021-05-23 INFLUENZA VACCINE [facility] Test 15:42:43 [code = INFLUENZA VACCINE] Encounters Start End Encounter Admission Attending Care Care Encounter Source Date/Time Date/Time Type Type Clinicians Facility Department ID 2022-05-29 2022-05-29 Outpatient KAL LUIS [id number] Constance 15:20:00 15:20:00 Seybol d 2022-02-28 2022-02-28 Outpatient CONSTANCE CORONADO [id number] Constance 08:30:00 08:30:00 ROSE Seybol d 2022-02-28 2022-02-28 Outpatient CONSTANCE ROSARIO [id number] Constance 00:00:00 00:00:00 Seybol d 2022-02-01 2022-02-01 Outpatient KAL LUIS [id number] Constance 00:00:00 00:00:00 Seybol d 2021-12-21 2021-12-21 Outpatient CONSTANCE MULLER [id number] Constance 00:00:00 00:00:00 ANDRES Seybol d 2021-12-19 2021-12-19 Outpatient CONSTANCE CORONADO [id number] Constance 08:15:00 08:15:00 ROSE Seybol d 2021-12-19 2021-12-19 Telemedici TICO CORONADO [id number] Constance 08:15:00 08:15:00 ne ROSE [id number] Se ybold [id number] 2021-12-19 2021-12-19 Outpatient CONSTNACE MULLER [id number] Constance 00:00:00 00:00:00 ANDRES Seybol d 2021-12-18 2021-12-18 Outpatient CONSTANCE MULLER [id number] Constance 00:00:00 00:00:00 ANDRES Seybol d 2021-12-18 2021-12-18 Outpatient YOHANA, CONSTANCE ROSARIO [id number] Constance 00:00:00 00:00:00 ANDRES Seybol d 2021-12-18 2021-12-18 Outpatient CONSTANCE MULLER [id number] Constance 00:00:00 00:00:00 ANDRES Seybol d 2021-12-15 2021-12-15 Outpatient LAB47 CONSTANCE ROSARIO [id number] Constance 12:20:00 12:20:00 Seybol d 2021-12-15 2021-12-15 Office YUNG Muller [id number] Constance 10:45:00 11:15:00 Visit [facility] [id number] Se ybold [id number] 2021-11-24 2021-11-24 Outpatient LAB39 CONSTANCE ROSARIO [id number] Constance 16:15:00 16:15:00 Seybol d 2021-11-24 2021-11-24 Office KAL LUIS [id number] Constance 15:50:00 15:50:00 Visit [facility] [id number] Se ybold [id number] 2021-11-06 2021-11-06 Outpatient CONSTANCE NORTON [id number] Constance 00:00:00 00:00:00 AFFILIATE Seyb old 2021-10-03 2021-10-03 Outpatient CONSTANCE MULLER [id number] Constance 00:00:00 00:00:00 ANDRES Seybol d 2021-09-21 2021-09-21 Outpatient CONSTANCE SIMONS [id number] Constance 00:00:00 00:00:00 PREMA Seybol d 2021-08-21 2021-08-21 Office Tigre Simons 1.2.840.114 [id number] Constance 16:30:00 17:00:00 Visit Prema Rodriguez 350.1.13.13 Se ybold 1.2.7.2.686 [id number] 2021-06-12 2021-06-12 Outpatient KAL LUIS CONST[facility] ROSARIO [id number] Constance 00:00:00 00:00:00 Seybol d 2021-05-23 2021-05-23 Outpatient LAB39 CONSTANCE ROSARIO [id number] Constance 16:20:00 16:20:00 Seybol d 2021-05-23 2021-05-23 Office Maryan KETAN 1.2.840.114 [id number] Constance 15:40:00 16:00:00 Visit [facility] 350.1.13.13 Se ybold 1.2.7.2.686 [id number] 2021-05-22 2021-05-22 Outpatient ZAIRA FELIZ [facility] ROS[facility]IO [id number] Constance 00:00:00 00:00:00 Seybol d 2021-05-22 2021-05-22 Outpatient KAL LUIS CONSTANCE ROSARIO [id number] Constance 00:00:00 00:00:00 Seybol d 2021-05-12 2021-05-12 Imm/Inj Nurse, Adc Pob Immunization [facility] 1.2.840.114 [id number] Univers 14:30:00 14:46:27 Visit [facility].13 .[facility]2.7[facility]2.686 Ingris CULLENESSSHELLIE [id number] Sc dic[address] 2021-05-12 2021-05-12 Outpatient Salina VEGA [facility] [id number] Univers 14:30:00 14:30:[address] [facility] 2021-04-18 2021-04-18 Letter LILLIE Cheatham 1.2.840.114 [id number] Univers 00:00:00 00:00:00 (Out) Kalpana GOMEZ 350.1.13.10 it [facility] 4.2.7.2.686 Bob as [id number] [address] 2021-04-17 2021-04-17 Outpatient R GILLES [facility] [id number] Univers 12:00:00 13:13:31 JACK ittre o f [facility] 2021-04-17 2021-04-17 Laboratory Only, Ang Db Test [facility] 1.2.8 40.114 [id number] Univers 12:00:00 12:15:00 Only Jack Campoverde [facility] 350.1.13.10 ity of [place] 4.2.7.2.686 Bob as DONOVAN?BLEA [id number] Sc dical [address] MEDICAL OFFICE BUILDING 2021-04-17 2021-04-17 Orders Doctor LILLIE 1.2.840.114 [id number] [facility] 00:00:00 00:00:00 Only Unassigned, JASON 350.1.13.10 ity of [place] [facility] 4.2.7.2.686 Bob as [id number] [facility] [address] [place] 2021-03-09 2021-03-09 Outpatient CONSTANCE MULLER [id number] Constance 00:00:00 00:00:00 ANDRES Sutherlandol radha 2021-02-24 2021-02-24 Office YUNG Muller 1.2.840.114 [id number] Constance 08:29:02 08:44:02 Visit Andres 350.1.13.13 Se ybold 1.2.7.2.686 [id number] 2021-02-13 2021-02-13 Outpatient TESTING, CONSTANCE ROSARIO [id number] Constance 17:20:00 17:20:00 Seybol d 2021-02-13 2021-02-13 Outpatient CONSTANCE LOPEZ [id number] Constance 00:00:00 00:00:00 LUZ Cheekybol radha 2021-02-12 2021-02-12 Telephone LILLIE Bruks 1.2.911.767 [id number] [facility] 00:00:00 00:00:00 Yulisa GOMEZ 350.1.13.10 i ty of [facility] 4.2.7.2.686 Bob as [phone] [facility] [address] [place] 2021-02-11 2021-02-11 Laboratory Only, Ang Db Test [facility] 1.2.8 40.114 [id number] Univers 15:49:25 16:04:[address] [facility]13.[facility] 4.2.7.2.686 Bob as Donovan?Blea [id number] Sc dical [address] Medical Office Building 2021-02-11 2021-02-11 Outpatient R BALDEMAR [facility] [id number] Univers 16:00:00 15:59:16 [facility] 2021-02-11 2021-02-11 Telemedici John, [place] 1.2.840.114 [id number] Constance 12:35:56 12:54:55 ismael Mclaughlin [facility] 350.1.13.13 S eybojean AND 1.2.7.2.686 DIAGNOSTI [id number] CENTER 0 2020-11-28 2020-11-28 Outpatient CONSTANCE MULLER [id number] Constance 00:00:00 00:00:00 ANDRES Seybol radha 2020-11-28 2020-11-28 Outpatient CONSTANCE MULLER [id number] Constance 00:00:00 00:00:00 ANDRES Seybol radha 2020-11-23 2020-11-23 Outpatient CONSTANCE MULLER [id number] Constance 00:00:00 00:00:00 ANDRES Seybol radha 2020-11-16 2020-11-16 Outpatient CONSTANCE MULLER [id number] Constance 00:00:00 00:00:00 ANDRES Seybol radha 2020-11-07 2020-11-07 Outpatient CONSTANCE MULLER [id number] Constance 00:00:00 00:00:00 ANDRES Sutherlandol radha 2019-10-28 2019-11-10 Inpatient [facility] [id number] [place] [address] 00:00:00 00:00:00 PROMISE [address] Results Test Description Test Time Test Comments Results Result Comments Source SARS-CoV-2 (COVID-19) RNA [Presence] in Respiratory sp ecimen by 2019-11-10 02:36:17 DAVID with probe detection Test Item Value Reference Range Interpretation Comme nts SARS-CoV-2 (COVID-19) RNA [Presence] in Respiratory Detected No t-Detected specimen by DAVID with probe detection (test code = 46318-3) KYLAH ROWLANDSARS-CoV-2 (COVID-19) RNA [Presence] in Respiratory specimen by DAVID with probe [id number] 20:04:11 Test Item Value Reference Range Interpretation Comments SARS-CoV-2 (COVID-19) RNA [Presence] Detected Not-Detected in Respiratory specimen by DAVID with probe detection (test code = 23013-0) KYLAH ROWLANDCT, ABDOMEN - PELVIS, HEMATURIA EVAL, WITHOUT / WITH IV [id number] 21:13:00Reason for exam:->HEMATURIAReason for exam:- >URINARY FREQUENCYFINAL REPORT CT OF THE ABDOMEN AND PELVIS CLINICAL HISTORY: Hematuria, urinary frequency, post prostatectomy TECHNIQUE: CT of the abdomen and pelvis is performed with and without in travenous contrast administration. This exam was performed according to our departmental dose-optimization program which includes automated exposure control, adjustment of the mA and/or kV according topatient size and/or use of iterative reconstruction technique. COMPARISON FILM: None DISCUSSION: LOWER THORAX: Unremarkable. HEPATOBILIARY: No focal liver lesions. Main portal vein patent. Gallbladder unremarkable. No biliary ductal dilation.PANCREAS: No pancreatic ductal dilation. No pancreatic lesion. SPLEEN: No splenomegaly. ADRENALS: No nodule. KIDNEYS/URETERS: Subcentimeter hypodensities in bothkidneys are too small to characterize but likely represent cysts. No obstructing renal or ureteral calculi. No hydronephrosis or hydroureter.PELVIC ORGANS/BLADDER: Diffuse wall thickening in the bladder with surrounding inflammatory change. Prostate is surgically absent. GI TRACT: No bowel wall thickening or distention. Normal appendix. PERITONEUM/RETROPERITONEUM: No free fluid or free air.LYMPH NODES: [...] 3.7 cm in AP dimension. Signed: Ankur Wolfe MDReport Verified Date/Time: 12/20/2017 21:13:17 Reading Location: [address] Consult Reading Room Electronicallysigned by: ANKUR WOLFE MD on 12/20/2017 09:13 PMURINALYSIS W/ REFLEX URINE [id number] 18:41:00 Test Item Value Reference Range Interpretation Comments COLOR (BEAKER) (test code = 470) Red CLARITY (BEAKER) (test code = 469) Cloudy SPECIFIC GRAVITY UA (BEAKER) (test 1.027 1.001-1.035 code = 468) PH UA (BEAKER) (test code = 467) 5.5 5.0-8.0 PROTEIN UA (BEAKER) (test code = 200 mg/dL Negative A 464) GLUCOSE UA (BEAKER) (test code = Negative Negative 365) KETONES UA (BEAKER) (test code = Trace Negative A 371) BILIRUBIN UA (BEAKER) (test code = Negative Negative 462) BLOOD UA (BEAKER) (test code = 461) Large Negative A NITRITE UA (BEAKER) (test code = Negative Negative 465) LEUKOCYTE ESTERASE UA (BEAKER) Large Negative A (test code = 466) UROBILINOGEN UA (BEAKER) (test code 2.0 mg/dL 0.2-1.0 H = 463) RBC UA (BEAKER) (test code = 519) 5201 /HPF WBC UA (BEAKER) (test code = 520) 231 /HPF MUCUS (BEAKER) (test code = 1574) Few SOURCE(BEAKER) (test code = 4122) CBC W/PLT COUNT & AUTO [id number] 18:34:00 Test Item Value Reference Range Interpretation [...] = 3438) Received comment: User comments: Slide comments:[id number] 18:23:00 Test Item Value Reference Range Interpretation Comments LIPASE (BEAKER) (test code = 749) 32 U/L 8-78 BASIC METABOLIC [id number] 18:23:00 Test Item Value Reference Range Interpretation [...] APPLICABLE FOR DIALYSIS PATIEN TS. HEPATIC FUNCTION [id number] 18:23:00 Test Item Value Reference Range Interpretation [...] code = 25 U/L 6-55 347) TISSUE [id number] 14:55:00Surgical Pathology Report Case: [id number] Authorizing Provider: Kal Luis MD Collected: 09/25/2017 1116 Ordering Location: [facility] Received: 09/25/2017 1348 SERVICES Pathologist: Wilfred Carballo MD Specimens: A) - Lymph Node, Pelvic, Left B) - Lymph Node, [...] PATHOLOGIC DIAGNOSIS Signing Pathologist Direct Phone Line: [phone] signed by Wilfred Garcia MD on10/01/2017 at 2:55 PMPreliminary result electronically signed by Wilfred Garcia MD on 09/27/2017 at 2:14 PMSections show bilateral peripheral zone cancers, largest on the right, and mostly in the apical 2/3 of the gland. PROSTATE GLAND: Radical Prostatectomy (Prostate Res - All Specimens)SPECIMEN Procedure: Radical prostatectomy Prostate Size: Prostate Weight (g): 38 g Prostate Greatest Dimensi on in Centimeters (cm): 4.2 Centimeters (cm) Additional Dimension in Centimeters (cm): 3.5 Centimeters (cm) Additional Dimension in Centimeters (cm): 3.4 Centimeters (cm)TUMOR Histologic Type: Acinar adenocarcinoma Histologic Grade: Wen Pattern: Percentage of Pattern 4: 20 % Primary [place] Pattern: Pattern 3 Secondary Wen Pattern: Pattern 4 Tertiary Wen Pattern: Not applicable Total Wen Score: 7 [...] Regional Lymph Nodes (pN): pN0 ADDITIONAL FINDINGS AdditionalPathologic Findings: High-grade prostatic intraepithelial neoplasia (PIN) Additional Pathologic Findings: Nodular prostatic hyperplasia 82705, 52834 S4Womcmnxb cancerA. Left pelvic lymph node. B. Rightpelvic lymph node. C. Prostate and periprostatic fatSpecimen A: Received fresh labeled "lymph node, pelvic, left" is 5.0 x 3.5 x 0.5 cm, yellow-jain, irregular portion of adipose tissue. Sectioning reveals two pink-jain to yellow possible lymph nodes measuring 1.0 cm and 3.0 cm in greatest dimension.The specimen entirely submitted as follows: A1, one intact lymph node; A2, one bisected lymph node; A3-A5, remainder of specimen.Specimen B: Received fresh labeled "lymph node, pelvic, right" is 4.5 x 2.5 x 0.5 cm, yellow-jain, irregular portion of [...] prostate weighs 38 gm and measures 3.5 cmapex to base, 4.2 cm transversely and 3.4 cm [...] focally ragged. Ink code: Right-black, left-blue. The prostate is serially sectioned from apex to base in entirety. The total number of slices including seminal vesicles and vas deferentia are 10. The sections reveal pink-jain to hu-white, homogeneous, focally nodular prostatic parenchyma [...] with vas deferentia are submitted in cassette C10.Also received is a jain-yellow fibrofatty piece of soft tissue measuring 5.0 x 2.0 x 0.5 cm and weighing 3.5 cm submitted in cassette C11.SDH/ewC. Received is a prostate with bilateral seminal vesicles and vas deferentia.The prostate weighs 38 gm and measures 3.5 cm apex to base, 4.2 cm transversely and 3.4 cm anterior to posterior. The right and left seminal vesicles measure 3.1 x 1.0 x 0.5 cm and 3.0 x 1.0 x 0.5 cm respectively. [facility]/Christiano. Performed.POCT-GLUCOSE [id number] 11:54:00 Test Item Value Reference Range Interpretation Comments POC-GLUCOSE METER 112 mg/dL 70-110 H TESTED AT [place] [address] ([facility]) (test code = [facility] 1538) [address] POCT-GLUCOSE [id number] 08:37:00 Test Item Value Reference Range Interpretation Comments POC-GLUCOSE METER 161 mg/dL 70-110 H TESTED AT [place] [address] ([facility]) (test code = [facility] 1538) [address] BASIC METABOLIC [id number] 04:47:00 Test Item Value Reference Range Interpretation [...] APPLICABLE FOR DIALYSIS PATIEN TS. HEMOGLOBIN AND [id number] 03:45:00 Test Item Value Reference Range Interpretation Comments HEMOGLOBIN (BEAKER) (test code = 12.5 GM/DL 13.7-17.5 L 410) HEMATOCRIT (BEAKER) (test code = 38.2 % 40.1-51.0 L 411) POCT-GLUCOSE [id number] 21:18:00 Test Item Value Reference Range Interpretation Comments POC-GLUCOSE METER 165 mg/dL 70-110 H TESTED AT [place] [address] ([facility]) (test [facility] = [facility] [place] [facility] 1538) [address] POCT-GLUCOSE [id number] 18:02:00 Test Item Value Reference Range Interpretation Comments POC-GLUCOSE METER 139 mg/dL 70-110 H TESTED AT [place] [address] ([facility]) (test code = [facility] [place] [facility] 1538) [address] POCT-GLUCOSE [id number] 12:18:00 Test Item Value Reference Range Interpretation Comments POC-GLUCOSE METER 153 mg/dL 70-110 H [facility] [place] [address] [facility] (test code = [facility] [place] [facility] 1538) [address] POCT-GLUCOSE [id number] 07:43:00 Test Item Value Reference Range Interpretation Comments POC-GLUCOSE METER 140 mg/dL 70-110 H TESTED AT [place] [address] ([facility]) (test code = [facility] 1538) [address] BASIC METABOLIC [id number] 05:34:00 Test Item Value Reference Range Interpretation [...] APPLICABLE FOR DIALYSIS PATIEN TS. HEMOGLOBIN AND [id number] 05:17:00 Test Item Value Reference Range Interpretation Comments HEMOGLOBIN (BEAKER) (test code = 13.5 GM/DL 13.7-17.5 L 410) HEMATOCRIT (BEAKER) (test code = 41.0 % 40.1-51.0 411) POCT-GLUCOSE [id number] 18:04:00 Test Item Value Reference Range Interpretation Comments POC-GLUCOSE METER 133 mg/dL 70-[address] [facility] 6720 (BEAKER) (test code = [place] 1538) [address] BASIC METABOLIC [id number] 13:53:00 Test Item Value Reference Range Interpretation [...] APPLICABLE FOR DIALYSIS PATIEN TS. HEMOGLOBIN AND [id number] 13:33:00 Test Item Value Reference Range Interpretation Comments HEMOGLOBIN (SHAE) (test code = 12.8 GM/DL 13.7-17.5 L 410) HEMATOCRIT ([facility]) (test code = 38.6 % 40.1-51.0 L 411) POCT-GLUCOSE [id number] 06:09:00 Test Item Value Reference Range Interpretation Comments POC-GLUCOSE METER 108 mg/dL 70-[address] [facility] 67 ([facility]) (test code = [place] 0326) [id number]
[2022-02-28 13:18] LABS: SARS-CoV-2 Antigen Rapid Res Negative (Negative)
[2022-02-28 13:20] LABS: Absolute Lymphocytes (CBC) 1.2 K/uL (0.7-4.9); Hematocrit 42.5 % (39.6-49.0); Lymphocytes % 31.2 % (15.3-44.8); MCV 89.9 fL (80-100); MPV 9.5 fL (7.6-11.3); RBC Red Blood Cell Count 4.73 M/uL (4.33-5.43)
[2022-02-28 13:25] LABS: Protime INR 1.11
[2022-02-28] MEDS ORDERED: ASPIRIN 81 MG CHEWABLE TABLET ONE (13:35)
[2022-02-28] MEDS ORDERED: SIMETHICONE 80 MG TAB ONE (13:35)
[2022-02-28 13:37] LABS: Albumin 3.6 g/dL (3.4-5.0); Bilirubin Direct 0.2 mg/dL (0-0.2); Bilirubin Total 0.7 mg/dL (0.2-1.0); Magnesium 2.4 mg/dL (1.8-2.4); Potassium 3.9 mmol/L (3.5-5.1); Protein, Total 7.4 g/dL (6.4-8.2); Thyroid Stimulating Hormone 1.86 uIU/mL (0.360-3.740)
--- NOTE | 2022-02-28 13:45 | RAD REPORT ---
EXAM DESCRIPTION: RAD - Chest Single View - 02/28/2022 1:39 pm CLINICAL HISTORY: chest pain COMPARISON: Portable 10/26/2019 TECHNIQUE: AP portable chest image was obtained 02/28/2022 1:39 pm . FINDINGS: Lung volumes are low. No focal infiltrate, pulmonary edema or acute cardiopulmonary proces s. Heart and vasculature are normal. No measurable pleural effusion and no pneumothorax. No acute bony abnormality seen. No acute aortic finding. No free air under the diaphragm. IMPRESSION: No acute cardiopulmonary process.
--- NOTE | 2022-02-28 17:22 | ER ---
Nurse's Notes [facility] Name: Ariel Wakefield Age: 66 yrs Sex: Male : 1955 Arrival Date: 02/28/2022 Time: 12:20 Bed 19 Private MD: Diagnosis: Syncope Near;Weakness;Abnormal electrocardiogram [ECG] [EKG] Presentation: 02/28 12:21 Chief complaint: Patient states: Pt reports he had a colonoscopy this morning, had been kb3 discharged, and had just sat down to eat for the first time since last night, when he suddenly became cold/clammy, felt weak and confused, had some abdominal discomfort, and nausea. EMS reports the symptoms had improve when they arrived. Pt was AAO x4, VSS, pt reported abdominal discomfort and nausea had resolved. Pt states he now just feels weak. NIH 0. Coronavirus screen: Vaccine status: Patient reports receiving the 2nd dose of the covid vaccine. Client denies travel out of the [place] in the last 14 days. Ebola Screen: Patient negative for fever greater than or equal to 101.5 degrees Fahrenheit, and additional compatible Ebola Virus Disease symptoms Patient denies exposure to infectious person. Patient denies travel to an Ebola-affected area in the 21 days before illness onset. Initial Sepsis Screen: Does the patient meet any 2 criteria? No. Patient's initial sepsis screen is negative. Does the patient have a suspected source of infection? No. Patient's initial sepsis screen is negative. Risk Assessment: Do you want to hurt yourself or someone else? Patient reports no desire to harm self or others. Onset of symptoms was February 28, 2022 at 11:30. 12:21 Method Of Arrival: EMS: [facility] kb3 12:21 Acuity: JONEL 2 kb3 Triage Assessment: 12:25 General: Appears in no apparent distress. Behavior is calm, cooperative. Pain: Denies kb3 pain. Historical: - Allergies: 12:25 No Known Allergies; kb3 - Home Meds: 12:25 atorvastatin 10 mg Oral tab 1 tab once daily [Active]; hydrochlorothiazide 25 mg Oral kb3 tab 1 tab once daily [Active]; metformin 500 mg Oral tab 1 tab daily [Active]; - PMHx: 12:25 Diabetes - NIDDM; Hypertension; Hypercholesterolemia; kb3 - PSHx: 12:25 Knee; Prostatectomy; kb3 - Immunization history:: Adult Immunizations up to date, Client reports receiving the 2nd dose of the Covid vaccine, Last tetanus immunization: up to date. - Social history:: Smoking status: Patient denies any tobacco usage or history of. Screenin:26 Abuse screen: Denies threats or abuse. Denies injuries from another. Nutritional kb3 screening: No deficits noted. Tuberculosis screening: No symptoms or risk factors identified. Fall Risk None identified. Assessment: 12:26 General: See triage note. Pain: Denies pain. Neuro: No deficits noted. Cardiovascular: kb3 Heart tones present Capillary refill < 3 seconds Patient's skin is warm and dry. Rhythm is sinus bradycardia. GI: Reports nausea. 13:39 General: Pt ambulatory to restroom. Reports he passed a large amount of gas and the kb3 pressure in his abdomen has improved. Vital Signs: 12:21 BP 124 / 77; Pulse 57; Resp 16; Temp 97.7; Pulse Ox 97% ; Weight 103.42 kg; Height 5 kb3 ft. 11 in. (180.34 cm); Pain 0/10; 13:00 BP 132 / 76; Pulse 62; Resp 20; Pulse Ox 96% ; kb3 14:00 BP 126 / 73; Pulse 71; Resp 20; Pulse Ox 95% ; kb3 15:00 BP 113 / 74; Pulse 64; Resp 20; Pulse Ox 94% ; kb3 16:00 BP 116 / 70; Pulse 63; Resp 20; Pulse Ox 95% ; kb3 17:00 BP 117 / 76; Pulse 63; Resp 18; Pulse Ox 93% ; kb3 18:00 BP 125 / 78; Pulse 52; Resp 18; Pulse Ox 97% ; kb3 12:21 Body Mass Index 31.80 (103.42 kg, 180.34 cm) kb3 ED Course: 12:20 Patient arrived in ED. kb3 12:25 Triage completed. kb3 12:25 Arm band placed on right wrist. kb3 12:26 Patient has correct armband on for positive identification. Bed in low position. Call kb3 light in reach. Side rails up X2. Adult w/ patient. Warm blanket given. 12:26 No provider procedures requiring assistance completed. Maintain EMS IV. Dressing kb3 intact. Good blood return noted. Site clean \T\ dry. Gauge \T\ site: 18G LAC. 12:35 Preethi Dumont, RN is Primary Nurse. kb3 12:35 Maddie Avalos FNP-C [facility]. snw 12:[address] MD is Attending Physician. snw 13:41 Chest Single View In Process Unspecified. EDMS 14:21 Type and Screen Sent. kb3 16:20 initiated transfer to [facility]. bd 16:34 pt denied at [facility] due to [facility] being on saturation. bd 17:20 Ariel Lovett MD is Hospitalizing Provider. snw 20:05 Patient admitted, IV remains in place. vc1 Administered Medications: 13:39 Drug: Aspirin Chewable Tablet 324 mg Route: PO; kb3 14:22 Follow up: Response: No adverse reaction kb3 13:39 Drug: Simethicone 240 mg Route: PO; kb3 14:22 Follow up: Response: No adverse reaction kb3 Medication: 12:26 VIS not applicable for this client. kb3 Outcome: 17:21 Decision to Hospitalize by Provider. snw 20:04 Admitted to Med/surg accompanied by tech, via wheelchair, with chart. vc1 20:04 Condition: good 20:04 Condition: good 20:04 Instructed on the need for admit. 20:06 Patient left the ED. vc1 Signatures: Dispatcher [employer] EDMS Caryn Almeida Shelly, FNP-C HVAC SERVICE TECH-Lazarow Kati Delgado RN RN vc1 Preethi Dumont, RN RN kb3
--- NOTE | 2022-02-28 17:22 | EDPHYS ---
Physician Documentation [facility] Name: Ariel Wakefield Age: 66 yrs Sex: Male : 1955 Arrival Date: 02/28/2022 Time: 12:20 Bed 19 Private MD: ED Physician Daniel Lane HPI: 02/28 13:30 This 66 yrs old Black Male presents to ER via EMS with complaints of near syncope. snw 13:30 Pt had colonoscopy yest, no abnormal findings, no problems. Pt went to eat today and snw felt weak, diaphoretic, and like he was going to pass out. Onset: The symptoms/episode began/occurred suddenly, today, and improved. Severity of symptoms: At their worst the symptoms were severe in the emergency department the symptoms have improved mildly. The patient has not experienced similar symptoms in the past. as noted. Historical: - Allergies: 12:25 No Known Allergies; kb3 - Home Meds: 12:25 atorvastatin 10 mg Oral tab 1 tab once daily [Active]; hydrochlorothiazide 25 mg Oral kb3 tab 1 tab once daily [Active]; metformin 500 mg Oral tab 1 tab daily [Active]; - PMHx: 12:25 Diabetes - NIDDM; Hypertension; Hypercholesterolemia; kb3 - PSHx: 12:25 Knee; Prostatectomy; kb3 - Immunization history:: Adult Immunizations up to date, Client reports receiving the 2nd dose of the Covid vaccine, Last tetanus immunization: up to date. - Social history:: Smoking status: Patient denies any tobacco usage or history of. ROS: 13:37 Eyes: Negative for injury, pain, redness, and discharge, ENT: Negative for injury, snw pain, and discharge, Neck: Negative for injury, pain, and swelling. 13:37 Cardiovascular: Negative for chest pain, palpitations, and edema, Respiratory: Negative for shortness of breath, cough, wheezing, and pleuritic chest pain. 13:37 Back: Negative for injury and pain, : Negative for injury, bleeding, discharge, and swelling, MS/Extremity: Negative for injury and deformity, Skin: Negative for injury, rash, and discoloration. 13:37 Constitutional: Positive for malaise, poor PO intake. 13:37 Abdomen/GI: Positive for abdominal pain, nausea. 13:37 Neuro: Positive for near syncope. Exam: 13:10 Respiratory: Lungs have equal breath sounds bilaterally, clear to auscultation and snw percussion. No rales, rhonchi or wheezes noted. No increased work of breathing, no retractions or nasal flaring. 13:10 Abdomen/GI: Inspection: distension, that is mild, that is moderate, Bowel sounds: normal, Palpation: mild abdominal tenderness, Hernia: noted in the umbilical area, bowel sounds are appreciated on auscultation. 13:39 Head/Face: Normocephalic, atraumatic. Eyes: Pupils equal round and reactive to light, snw extra-ocular motions intact. Lids and lashes normal. Conjunctiva and sclera are non-icteric and not injected. Cornea within normal limits. Periorbital areas with no swelling, redness, or edema. ENT: Nares patent. No nasal discharge, no septal abnormalities noted. Tympanic membranes are normal and external auditory canals are clear. Oropharynx with no redness, swelling, or masses, exudates, or evidence of obstruction, uvula midline. Mucous membranes moist. Neck: Trachea midline, no thyromegaly or masses palpated, and no cervical lymphadenopathy. Supple, full range of motion without nuchal rigidity, or vertebral point tenderness. No Meningismus. Chest/axilla: Normal chest wall appearance and motion. Nontender with no deformity. No lesions are appreciated. 13:39 Constitutional: The patient appears alert, listless. 13:39 Cardiovascular: Rate: bradycardic, Rhythm: regular, Pulses: no pulse deficits are appreciated, Heart sounds: normal, JVD: is noted bilaterally, to 1 cm. Vital Signs: 12:21 BP 124 / 77; Pulse 57; Resp 16; Temp 97.7; Pulse Ox 97% ; Weight 103.42 kg; Height 5 kb3 ft. 11 in. (180.34 cm); Pain 0/10; 13:00 BP 132 / 76; Pulse 62; Resp 20; Pulse Ox 96% ; kb3 14:00 BP 126 / 73; Pulse 71; Resp 20; Pulse Ox 95% ; kb3 15:00 BP 113 / 74; Pulse 64; Resp 20; Pulse Ox 94% ; kb3 16:00 BP 116 / 70; Pulse 63; Resp 20; Pulse Ox 95% ; kb3 17:00 BP 117 / 76; Pulse 63; Resp 18; Pulse Ox 93% ; kb3 18:00 BP 125 / 78; Pulse 52; Resp 18; Pulse Ox 97% ; kb3 12:21 Body Mass Index 31.80 (103.42 kg, 180.34 cm) kb3 MDM: 13:16 Patient medically screened. snw 15:20 Response to treatment: the patient's symptoms have markedly improved after treatment. snw Physician consultation: Daniel Lane MD regarding consult, patient's condition, Dr. Lane agrees the history is concerning, + EKG changes. 16:13 Data reviewed: vital signs, nurses notes. Data interpreted: Pulse oximetry: on room air snw is 95 %. Interpretation: normal. Counseling: I had a detailed discussion with the patient and/or guardian regarding: the historical points, exam findings, and any diagnostic results supporting the discharge/admit diagnosis, lab results, radiology results, the need for further work-up and treatment in the hospital, pt transfer request second to [facility]. 16:17 Special discussion: would like to admit pt to hospital for obs. pt requests transfer snw 2nd to insurance network. ED course: Heart score 5. . 16:37 ED course: Yarsani system on saturation, unable to transfer, will admit here.. snw 17:17 Physician consultation: Ariel Lovett MD was called at 16:40, was contacted at 16:45, sn regarding admission, to the telemetry unit. would like consultation with Dr. Dr. Thomas. EKG sent to Dr. Thomas. Ok to admit. 02/28 13:05 Order name: Basic Metabolic Panel; Complete Time: 13:42 EDMS 02/28 12:36 Order name: EKG; Complete Time: 13:50 kb3 02/28 12:51 Order name: Chest Single View; Complete Time: 13:51 EDMS 02/28 13:05 Order name: Liver (Hepatic) Function; Complete Time: 13:42 EDMS 02/28 13:05 Order name: Magnesium; Complete Time: 13:42 EDMS 02/28 13:05 Order name: Thyroid Stimulating Hormone; Complete Time: 13:42 EDMS 02/28 13:05 Order name: SARS-COV-2 Antigen Rapid; Complete Time: 13:20 EDMS 02/28 13:05 Order name: CBC with Automated Diff; Complete Time: 13:27 EDMS 02/28 13:05 Order name: Protime (+INR); Complete Time: 13:27 EDMS 02/28 13:18 Order name: NT PRO-BNP; Complete Time: 13:42 EDMS 02/28 13:35 Order name: Type and Screen; Complete Time: 15:36 EDMS 02/28 14:28 Order name: Troponin High Sensitivity; Complete Time: 14:45 EDMS 02/28 14:54 Order name: ABO/RH no charge; Complete Time: 15:36 EDMS 02/28 12:36 Order name: Cardiac monitoring; Complete Time: 12:36 kb3 02/28 12:36 Order name: EKG - Nurse/Tech; Complete Time: 13:30 kb3 02/28 12:36 Order name: IV Saline Lock; Complete Time: 12:36 kb3 02/28 12:36 Order name: Labs collected and sent; Complete Time: 12:36 kb3 02/28 12:36 Order name: O2 Per Protocol; Complete Time: 12:36 kb3 02/28 12:36 Order name: O2 Sat Monitoring; Complete Time: 12:36 kb3 02/28 12:37 Order name: EKG; Complete Time: 13:51 snw 02/28 13:55 Order name: Labs - recollect needed: recollect type and screen; Complete Time: 14:21 bd 02/28 15:42 Order name: EKG; Complete Time: 15:42 snw 02/28 15:42 Order name: EKG - Nurse/Tech; Complete Time: 18:23 snw EC:10 Rate is 58 beats/min. Rhythm is regular. QRS [place] is Normal. ST Segment is elevated in snw leads II, aVF. Clinical impression: Sinus bradycardia. 16:56 Rate is 58 beats/min. Rhythm is regular. Right axis deviation noted. T waves are snw Inverted in lead aVL. Clinical impression: Sinus bradycardia. Administered Medications: 13:39 Drug: Aspirin Chewable Tablet 324 mg Route: PO; kb3 14:22 Follow up: Response: No adverse reaction kb3 13:39 Drug: Simethicone 240 mg Route: PO; kb3 14:22 Follow up: Response: No adverse reaction kb3 Disposition Summary: 02/28/22 17:21 Hospitalization Ordered Hospitalization Status: Observation snw Provider: Ariel Lovett snw Location: Telemetry/MedSurg (observation) snw Condition: Stable snw Problem: new snw Symptoms: have improved snw Bed/Room Type: Standard snw Room Assignment: 230(02/28/22 18:54) eb1 Diagnosis - Syncope Near snw - Weakness snw - Abnormal electrocardiogram [ECG] [EKG] snw Forms: - Medication Reconciliation Form snw - SBAR form snw Signatures: Dispatcher [employer] EDMS Caryn Almeida Shelly, TOGGLER-C TOGGLER-Csnw Gladys Irizarry, RN RN eb1 Preethi Dumont, RN RN kb3 Corrections: (The following items were deleted from the chart) 13:01 12:37 IV Saline Lock ordered. snw kb3 13:01 12:37 Labs collected and sent ordered. snw kb3 13:01 12:37 Oxygen Per Protocol ordered. snw kb3 13:53 13:50 Chest Single View+RAD.RAD.BRZ ordered. EDMS EDMS 13:53 13:51 Chest Single View+RAD.RAD.BRZ ordered. EDMS EDMS 13:56 13:51 SARS-COV-2 Antigen Rapid+I.LAB.BRZ ordered. EDMS EDMS 13:56 13:51 TYPE AND SCREEN+BB.LAB.BRZ ordered. EDMS EDMS 14:31 13:51 PROTIME (+INR)+COAG.LAB.BRZ ordered. EDMS EDMS 14:32 13:50 CBC+H.LAB.BRZ ordered. EDMS EDMS 14:32 13:51 CBC+H.LAB.BRZ ordered. EDMS EDMS 14:33 13:50 BASIC METABOLIC PANEL+C.LAB.BRZ ordered. EDMS EDMS 14:33 13:50 Troponin High Sensitivity+C.LAB.BRZ ordered. EDMS EDMS 14:33 13:51 BASIC METABOLIC PANEL+C.LAB.BRZ ordered. EDMS EDMS 14:33 13:51 HEPATIC FUNCTION+C.LAB.BRZ ordered. EDMS EDMS 14:33 13:51 MAGNESIUM+C.LAB.BRZ ordered. EDMS EDMS 14:33 13:51 PROBNP+C.LAB.BRZ ordered. EDMS EDMS 14:33 13:51 Troponin High Sensitivity+C.LAB.BRZ ordered. EDMS EDMS 14:33 13:51 THYROID STIMULAT HORMONE+C.LAB.BRZ ordered. EDMS EDMS 18:54 17:21 snw bd 18:54 18:54 230 bd eb1
--- NOTE | 2022-02-28 18:49 | P.HP ---
Certification for Inpatient Patient admitted to: Observation With expected LOS: <2 Midnights Patient will require the following post-hospital care: None Practitioner: I am a practitioner with admitting privileges, knowledge of patient current condition, hospital course, and medical plan of care. Services: Services provided to patient in accordance with Admission requirements found in Title 42 Section 412.3 of the Code of Federal Regulations <Pj Singh - Last Filed: 02/28/22 18:45> Patient History Date of Service: 02/28/22 Reason for admission: Syncope History of Present Illness: 66-year-old male history of hypertension, hyperlipidemia, diabetes mellitus type 2 presents emergency department for syncope. He reports he had colonoscopy this morning which was normal, he sat down to eat this afternoon when he started to experience some abdominal pain/chest pain, he became diaphoretic and felt very weak and "slumped over" he reports he does not remember the events his states his eyes rolled back in his head and he appeared to lose consciousness for a few seconds, he sat up and was feeling better. He reports that somebody at the restaurant checked his blood pressure and it was "low". He presented to the emergency department for further evaluation in the ER his labs were significant for creatinine 1.31 GFR 61 glucose 130 chest x-ray negative for acute findings, EKG with some ST changes he was sent to cardiology who reviewed recommends observation in hospital. Patient feeling much better at this time vital signs are stable. - Past Medical/Surgical History -: HTN -: HLD -: DMII -: Knee -: Prostate sx Psychosocial/ Personal History: Pt lives at home with , is a truckload owner operator. - Family History Mother -: Heart disease, Hypertension, Diabetes - Social History Smoking Status: Never smoker Alcohol use: No CD- Drugs: No Caffeine use: Yes Place of Residence: Home <Pj Singh - Last Filed: 02/28/22 18:45> Date of Service: 03/01/22 <Ariel Lovett - Last Filed: 03/01/22 20:29> Review of Systems 10-point ROS is otherwise unremarkable Cardiovascular: Other (syncope) <Pj Singh - Last Filed: 02/28/22 18:45> Physical Examination - Physical Exam General: Alert, In no apparent distress, Oriented x3 HEENT: Atraumatic, PERRLA, Mucous membr. moist/pink, EOMI, Sclerae nonicteric Neck: Supple, 2+ carotid pulse no bruit, No LAD, Without JVD or thyroid abnormality Respiratory: Clear to auscultation bilaterally, Normal air movement Cardiovascular: Regular rate/rhythm, Normal S1 S2 Gastrointestinal: Normal bowel sounds, No tenderness Musculoskeletal: No tenderness Integumentary: No rashes Neurological: Normal gait, Normal speech, Normal strength at 5/5 x4 extr, Normal tone, Normal affect Lymphatics: No axilla or inguinal lymphadenopathy - Studies Laboratory Data (last 24 hrs) 02/28/22 12:45: PT 12.2, INR 1.11 02/28/22 12:45: WBC 3.80 L, Hgb 13.8, Hct 42.5, Plt Count 182 02/28/22 12:45: Sodium 137, Potassium 3.9, BUN 12, Creatinine 1.31 H, Glucose 130 H, Magnesium 2.4, Total Bilirubin 0.7, AST 24, ALT 30, Alkaline Phosphatase 106 02/28/22 12:37: PT Cancelled, INR Cancelled 02/28/22 12:37: WBC Cancelled, Hgb Cancelled, Hct Cancelled, Plt Count Cancelled 02/28/22 12:37: Sodium Cancelled, Potassium Cancelled, BUN Cancelled, Creatinine Cancelled, Glucose Cancelled, Magnesium Cancelled, Total Bilirubin Cancelled, AST Cancelled, ALT Cancelled, Alkaline Phosphatase Cancelled 02/28/22 12:36: WBC Cancelled, Hgb Cancelled, Hct Cancelled, Plt Count Cancelled 02/28/22 12:36: Sodium Cancelled, Potassium Cancelled, BUN Cancelled, Creatinine Cancelled, Glucose Cancelled <Pj Singh - Last Filed: 02/28/22 18:45> Assessment and Plan - Plan Assessment: Syncope hypertension Hyperlipidemia diabetes mellitus type 2-non insulin dependent Plan: Syncope: Monitor on tele, trend troponins, cardiology consult, echo. Story concerning for vasovagal syncope. Will obtain orthostatic vitals. hypertension: HCTZ continued Hyperlipidemia: Atorvastatin continued diabetes mellitus type 2-non insulin dependent: ACHS accucheck, SSI, A1c in AM. DVT PPX: Lovenox Code status:full Discharge Plan: Home Plan to discharge in: 24 Hours - Advance Directives Does patient have a Living Will: No Does patient have a Durable POA for Healthcare: No - Code Status/Comfort Care Code Status Assessed: Yes (Full code) Critical Care: No Time Spent Managing Pts Care (In Minutes): 70 <Pj Singh - Last Filed: 02/28/22 18:45> Physician Review: Patient Assessed, Agree with Above Assessment and Plan <Ariel Lovett - Last Filed: 03/01/22 20:29>
[2022-02-28] MEDS ORDERED: ONDANSETRON 4 MG/2 ML VIAL IV PRN (19:38)
[2022-02-28 20:00] VITALS: BMI 31.8
[2022-02-28 20:20] VITALS: O2SAT 97
[2022-02-28] MEDS: INSULIN -REGULAR HUMAN 50 UNIT/0.5 ML ML SQ SCH (21:00)
[2022-02-28] MEDS ORDERED: ATORVASTATIN 10 MG TAB PO SCH (21:00)
[2022-02-28] MEDS: Ringers Lactate 1,000 ML IV SCH (21:16)
[2022-03-01 06:16] LABS: Hematocrit 39.1 % (39.6-49.0); Lymphocytes % 29.3 % (15.3-44.8); MCV 89.2 fL (80-100); MPV 9.3 fL (7.6-11.3); RBC Red Blood Cell Count 4.39 M/uL (4.33-5.43)
--- NOTE | 2022-03-01 06:31 | EKG ---
Test Date: 2022-02-28 Test Time: 13:10:00 Butter Fat Tester: SANGITA MEASUREMENT RESULTS: Intervals: Rate: 58 MN: 144 QRSD: 92 QT: 424 QTc: 416 [place]: P: 42 MN: 144 QRS: 33 T: 62 INTERPRETIVE STATEMENTS: Sinus bradycardia Possible Inferior infarct, age undetermined Abnormal ECG Compared to ECG 10/26/2019 13:37:14 Myocardial infarct finding now present Sinus rhythm no longer present Electronically Signed On 03-01-22 06:30:23 PET TRAINING INSTRUCTOR by Isra Mckinnon
[2022-03-01 06:36] LABS: Potassium 3.4 mmol/L (3.5-5.1); Troponin High Sensitivity 10.5 pg/mL (<58.9)
[2022-03-01] MEDS ORDERED: POTASSIUM CL SA 10 MEQ TAB PO ONE (07:22)
[2022-03-01] MEDS: INSULIN -REGULAR HUMAN 50 UNIT/0.5 ML ML SQ SCH ×3 (07:30→16:30)
[2022-03-01] MEDS ORDERED: ENOXAPARIN 40 MG/0.4 ML SQ SCH (09:00)
[2022-03-01] MEDS ORDERED: hydroCHLOROthiazide 25 MG TAB PO SCH (09:00)
[2022-03-01] MEDS ORDERED: ASPIRIN EC 81 MG TAB PO SCH (09:00)
[2022-03-01] MEDS: Ringers Lactate 1,000 ML IV SCH (10:03)
[2022-03-01 12:21] VITALS: BP 129/64; TEMP 97
--- NOTE | 2022-03-01 14:53 | EKG ---
Test Date: 2022-03-01 Test Time: 13:05:00 Buckle Wire Inserter: ROSAMARIA MEASUREMENT RESULTS: Intervals: Rate: 61 [place]: 168 QRSD: 96 QT: 398 QTc: 400 [place]: P: 46 [place]: 168 QRS: 39 T: 80 INTERPRETIVE STATEMENTS: Normal sinus rhythm Possible Inferior infarct, age undetermined Abnormal ECG Compared to ECG 02/28/2022 16:56:35 Myocardial infarct finding now present Sinus bradycardia no longer present Right superior axis no longer present ST (T wave) deviation no longer present Electronically Signed On 03-01-22 14:52:22 CREATIVE ART THERAPIST by Rc Thomas
--- NOTE | 2022-03-01 14:54 | EKG ---
Test Date: 2022-02-28 Test Time: 16:56:35 Manufacturing Planner: PH MEASUREMENT RESULTS: Intervals: Rate: 58 [place]: 184 QRSD: 100 QT: 400 QTc: 392 [place]: P: [place]: 184 QRS: 182 T: 121 INTERPRETIVE STATEMENTS: Sinus bradycardia Right superior axis deviation Nonspecific ST and T wave abnormality Abnormal ECG Electronically Signed On 03-01-22 14:52:48 WOOLEN TESTER by Rc Thomas
--- NOTE | 2022-03-01 20:38 | P.DS ---
Admission Date: 02/28/22 Discharge Date: 03/01/22 Primary Care Provider: Dr. Cavazos Disposition: ROUTINE DISCHARGE Discharge Condition: GOOD Reason for Admission: Syncope Consultations: 1. Cardiology Hospital Course: DIAGNOSES: # Syncope # Type II Diabetes Mellitus # Hypertension # Hyperlipidemia HOSPITAL COURSE: Mr. Ariel Wakefield is a pleasant 66-year-old male with a past medical history significant for hypertension, hyperlipidemia, and type 2 diabetes mellitus who was admitted to the [facility] on 02/28/2022 for a syncopal episode. He was admitted to the Medicine service. Upon further evaluation, he reports having an episode of syncope that occurred after fasting all night, taking a colonoscopy bowel preparation, and occurred about 1-2 hours after waking up from a colonoscopy. It seems most likely that his syncope may have been secondary to dehydration from the colonoscopy prep, hypoglycemia from fasting, or from anesthesia. To further evaluate. orthostatic vital signs were obtained, and he was negative for orthostatic hypotension. Cardiology was consulted to evaluate for cardiogenic syncope. His EKG was without STEMI criteria. His troponin trend was 8.4, 10.4, and 10.5, respectively. A transthoracic echocardiogram was obtained, but the formal report is currently pending. I discussed his echocardiogram with Dr. Thomas, who reads the images, and he states that his echocardiogram was within normal limits. He was evaluated by Dr. Mckinnon and cleared for discharge with an outpatient follow-up. I ambulated around the nursing station with Mr. Wakefield and he had no recurrent episodes of syncope. On 03/01/2022, he was seen on morning rounds and deemed medically stable for discharge. He was discharged with instructions to schedule follow-up appointments with his PCP (Dr. Cavazos) and with Cardiology (Dr. Mckinnon). He and his family members were given the opportunity to ask questions and reported no further questions. Furthermore, all questions were answered to the best of my ability. A copy of this discharge summary will be sent to the above providers to facilitate continuity of care. Today, I personally spent 20 minutes on his case, of which greater than 50% of the time was spent in patient education, counseling, and coordination of care as described above. Vital Signs/Physical Exam: Temp Pulse Resp BP Pulse Ox 97.0 F 68 16 129/64 97 03/01/22 12:00 03/01/22 12:00 03/01/22 12:00 03/01/22 12:00 03/01/22 12:00 General: Alert, In no apparent distress, Oriented x3 HEENT: Atraumatic, PERRLA, Mucous membr. moist/pink, EOMI, Sclerae nonicteric Neck: Supple, JVD not distended Respiratory: Clear to auscultation bilaterally, Normal air movement Cardiovascular: No edema, Regular rate/rhythm, Normal S1 S2, No gallops, No rubs, No murmurs Gastrointestinal: Normal bowel sounds, Soft and benign, Non-distended, No tenderness, No rebound, No guarding Musculoskeletal: No clubbing Integumentary: No rashes Neurological: Normal speech, Cranial nerves 3-12 intact, Normal affect Laboratory Data at Discharge: WBC 3.40 K/uL (4.3-10.9) L 03/01/22 05:42 Hgb 13.0 g/dL (13.6-17.9) L 03/01/22 05:42 Hct 39.1 % (39.6-49.0) L 03/01/22 05:42 Plt Count 166 K/uL (152-406) 03/01/22 05:42 PT 12.2 SECONDS (9.5-12.5) 02/28/22 12:45 INR 1.11 02/28/22 12:45 Sodium 140 mmol/L (136-145) 03/01/22 05:42 Potassium 3.4 mmol/L (3.5-5.1) L 03/01/22 05:42 BUN 11 mg/dL (7-18) 03/01/22 05:42 Creatinine 1.14 mg/dL (0.55-1.3) 03/01/22 05:42 Glucose 119 mg/dL (74-106) H 03/01/22 05:42 Magnesium 2.4 mg/dL (1.8-2.4) 02/28/22 12:45 Total Bilirubin 0.7 mg/dL (0.2-1.0) 02/28/22 12:45 AST 24 U/L (15-37) 02/28/22 12:45 ALT 30 U/L (12-78) 02/28/22 12:45 Alkaline Phosphatase 106 U/L (45-117) 02/28/22 12:45 Triglycerides 85 mg/dL (<150) 03/01/22 05:42 Cholesterol 155 mg/dL (<200) 03/01/22 05:42 HDL Cholesterol 37 mg/dL (40-60) L 03/01/22 05:42 Cholesterol/HDL Ratio 4.19 03/01/22 05:42 Home Medications: Atorvastatin Calcium [Lipitor*] 10 mg PO DAILY 02/28/22 Metformin ER [Glucophage ER*] 500 mg PO DAILY 02/28/22 Vitamin E [Vitamin E*] 1 tab PO DAILY 02/28/22 hydroCHLOROthiazide [Hydrodiuril*] 25 mg PO DAILY 02/28/22 Physician Discharge Instructions: 1. Please schedule a follow-up appointment with your PCP (Dr. Cavazos) in 3-5 days 2. Please schedule a follow-up appointment with Cardiology (Dr. Mckinnon) in 5-7 days Diet: AHA Activity: Ad etienne Followup: Andres Cavazos MD [OUTSIDE PHYSICIAN] - Isra Mckinnon MD [ACTIVE - CAN ADMIT] - Time spent managing pt's care (in minutes): 20
--- NOTE | 2022-03-02 07:24 | ECHO ---
HEIGHT: 5 ft 11 in WEIGHT: 228 lb 0 oz DATE OF STUDY: 03/01/[address]: Pj Singh NP 2-DIMENSIONAL: YES M.MODE: YES DOPPLER: YES COLOR FLOW: YES TDS: NO PORTABLE: YES DEFINITY: NO BUBBLE STUDY: NO DIAGNOSIS: SYNCOPE, ABNORMAL EKG CARDIAC HISTORY: CATHERIZATION: SURGERY: PROSTHETIC VALVE: PACEMAKER: MEASUREMENTS (cm) DIASTOLIC (NORMALS) SYSTOLIC (NORMALS) IVSd 1.2 (0.6-1.2) LA Diam 3.6 (1.9-4.0) LVEF 59% LVIDd 4.0 (3.5-5.7) LVIDs 2.8 (2.0-3.5) %FS 31% LVPWd 1.3 (0.6-1.2) Ao Diam 2.8 (2.0-3.7) 2 DIMENSIONAL ASSESSMENT: RIGHT ATRIUM: NORMAL LEFT ATRIUM: NORMAL RIGHT VENTRICLE: NORMAL LEFT VENTRICLE: NORMAL TRICUSPID VALVE: MITRAL VALVE: PULMONIC VALVE: NORMAL AORTIC VALVE: NORMAL PERICARDIAL EFFUSION: NONE AORTIC ROOT: NORMAL LEFT VENTRICULAR WALL MOTION: NORMAL DOPPLER/COLOR FLOW: MILD MITRAL AND TRICUSPID REGURGITATION. COMMENTS: NORMAL LEFT VENTRICULAR EJECTION FRACTION 55-60%. NORMAL WALL MOTION. NORMAL DIASTOLIC FUNCTION. MILD MITRAL AND TRICUSPID REGURGITATION. TECHNOLOGIST: Alysha WALTON
--- NOTE | 2022-03-03 23:12 | CON ---
Date of Consultation: 03/01/[address] Lovett on 02/28/2022. I saw the patient on 03/01/2022. Reason For Consultation: Syncope. History Of Present Illness: Mr. Wakefield is 66, history of hypertension, diabetes, dyslipidemia, came in with presyncopal episode. He takes Lipitor, metformin, hydrochlorothiazide. He has had a [employer] copy that morning. In the evening, he had mid epigastric discomfort, nausea, severe abdominal pain, and then fainted. H e denied any chest pain, nausea, vomiting, diaphoresis, PND, orthopnea, pedal edema, palpitations, or syncope. Workup was negative except for creatinine of 1.31. EKG is negative. Chest x-ray is negat gila. Past Medical History: As stated above. Allergies: NONE. Review of Systems: Negative. Social History: Negative. Family History: Negative. Medication: As listed earlier. Physical Examination: Vital Signs: Stable. Afebrile. HEENT: Negative. Neck: Supple with no bruit. Chest: Clear. Cardiac: Revealed a regular rhythm and rate. No murmurs, gallops, or rubs. Abdomen: Benign. Extremities: Revealed no clubbing, cyanosis, or edema. Diagnostic Data: As stated earlier. Impression And Plan: Syncope secondary to vasovagal reaction or orthostatic hypotension. Echocardio gram is pending. Continue present regimen. Consider event monitor and Lexiscan as an outpatient. MICHAEL/TAMIA Voice ID: [id number] Report ID: [id number]
== END 2022-03-01 17:29 | disposition home or self-care (01) ==
LOC: ER 12:06 → 2ND 18:37
PROVIDERS: ADMIT Internal Medicine; ATTEND Internal Medicine
DX: R55 Syncope and collapse (principal); I10 Essential (primary) hypertension; E78.5 Hyperlipidemia, unspecified; E11.9 Type 2 diabetes mellitus without complications; Z82.49 Family history of ischemic heart disease and other diseases of the circulatory system; Z20.822 Contact with and (suspected) exposure to COVID-19
CPT/HCPCS: 93005 ×3; 93306; 85025 ×2; 80048 ×2; 36415; 86900; 83735; 86850; 85610; 80061; 86901; 82947 ×4; 80076; 84443; 83036; 84484 ×3; 83880; 71045; 99285; 87811; J1650; J7120 ×2; G0378 ×3